=== PATIENT | male | born 1960 | race Caucasian/White ===

== ENCOUNTER 2021-12-07 12:43 | Outpatient (REF) | payer MEDICARE, OTHER, SELFPAY ==
--- NOTE | ~2021-12-07 | CT_ITS ---
EXAMINATION: CT CHEST SCREENING CLINICAL INFORMATION: 40 pack per history. Current smoker. COMPARISON: 02/15/2019 and 02/14/2018 TECHNIQUE: Multidetector volumetric CT imaging of the chest is performed without contrast using low dose technique. Additional 2D coronal and sagittal reformatted images and axial 3D maximum intensity projection (MIP) images are generated on the CT workstation. This CT examination was performed using dose optimization techniques as appropriate, variously including the following: *Automated exposure control *Adjustment of mA and/or kV according to patient size (this includes techniques or standardized protocols for targeted exams where dose is matched to indication/reason for exam; i.e. extremities or head) *Use of iterative reconstruction technique DLP: 56 mGy-cm FINDINGS: LUNGS: Central airways are patent. No confluent parenchymal disease. No ground-glass disease is appreciated. There is some central bronchial wall thickening present without evidence of bronchiectasis. No significant emphysematous change is appreciated. There are a few scattered sub-4 mm densities present. There is a 5 mm noncalcified nodule seen within the right upper lobe centrally on image [address] series #5. This is stable. MEDIASTINUM: Heart normal size. Coronary artery calcification is seen. No pericardial effusion. There is enlarged right precarinal lymph node with short axis of 1.1 cm. There is a 1 cm short axis azygos lymph node. These lymph nodes were present previously and essentially of similar size. No hilar lymphadenopathy is appreciated. No thoracic aortic aneurysm. There is nonocclusive aortic arch calcified plaque. Visualized thyroid gland unremarkable. PLEURA: There is no pleural effusion. No pleural mass or thickening. AXILLA: No lymphadenopathy. UPPER ABDOMEN: Unremarkable OSSEOUS STRUCTURES: No suspicious destructive bony lesions identified. CT/CT lung screening IMPRESSION: Stable 5 mm right upper lobe nodule. Mildly enlarged mediastinal lymph nodes similar to previous studies. ASSESSMENT: Lung-RADS category 2: Benign RECOMMENDATION: Routine annual low-dose CT screening in 12 months.
== END 2021-12-07 12:44 | disposition home or self-care (01) ==
LOC: HO.CT 12:43
PROVIDERS: PCP Internal Medicine Geriatric Medicine; Visit Provider Physician Assistant Medical
DX: F17.210 Nicotine dependence, cigarettes, uncomplicated (principal); I25.10 Atherosclerotic heart disease of native coronary artery without angina pectoris; R59.1 Generalized enlarged lymph nodes
CPT/HCPCS: 71271

== ENCOUNTER 2023-05-02 08:32 | Outpatient (REF) | payer MEDICARE, OTHER, SELFPAY ==
--- NOTE | ~2023-05-02 | CT_ITS ---
EXAMINATION: CT CHEST SCREENING CLINICAL INFORMATION: Nicotine dependence, 40 pack year history, current smoker COMPARISON: Previous studies, most recent, 12/07/2021 TECHNIQUE: Multidetector volumetric CT imaging of the chest is performed without contrast using low dose technique. Additional 2D coronal and sagittal reformatted images and axial 3D maximum intensity projection (MIP) images are generated on the CT workstation. This CT examination was performed using dose optimization techniques as appropriate, variously including the following: *Automated exposure control *Adjustment of mA and/or kV according to patient size (this includes techniques or standardized protocols for targeted exams where dose is matched to indication/reason for exam; i.e. extremities or head) *Use of iterative reconstruction technique DLP: 54 mGy-cm FINDINGS: BUDGET SPECIALIST: Negative LUNGS: Trachea and bronchi are patent. Lungs are hyperinflated with flattening of the hemidiaphragms. Mild centrilobular emphysema. Stable right upper lobe 5 mm nodule 3:23. Scattered micronodules. MEDIASTINUM: Unremarkable thyroid. Mildly enlarged mediastinal lymph nodes are unchanged. No hilar lymphadenopathy. HEART AND GREAT VESSELS: Heart is not enlarged. No pericardial effusion. Nonaneurysmal aorta with atherosclerotic calcifications in the mid to the branch vessels. Nonenlarged pulmonary arteries. CORONARY ARTERY CALCIFICATION: Mild PLEURA: There is no pleural effusion. No pleural mass or thickening. AXILLA: No lymphadenopathy. UPPER ABDOMEN: Unremarkable OSSEOUS AND SOFT TISSUE STRUCTURES: Gynecomastia. Degenerative changes. CT/CT lung screening IMPRESSION: Stable 5 mm right upper lobe nodule. No change mildly enlarged mediastinal lymph nodes. ASSESSMENT: Lung-RADS category 2: Benign RECOMMENDATION: Routine annual low-dose CT screening in 12 months.
== END 2023-05-02 08:33 | disposition home or self-care (01) ==
LOC: HO.CT 08:32
PROVIDERS: PCP Internal Medicine Geriatric Medicine; Visit Provider Physician Assistant Medical
DX: Z12.2 Encounter for screening for malignant neoplasm of respiratory organs (principal); F17.210 Nicotine dependence, cigarettes, uncomplicated
CPT/HCPCS: 71271

== ENCOUNTER 2023-06-27 09:22 | Outpatient (REF) | payer MEDICARE, OTHER, SELFPAY ==
[2023-06-27 11:08] LABS: MANUAL DIFF FLAG NO
[2023-06-27 11:31] LABS: Basophils Absolute Auto 0.1 X10*3/uL (0.0-0.2); Basophils Percent Auto 1.2 % (0-2); Eosinophils Absolute Auto 0.3 X10*3/uL (0.0-0.4); Eosinophils Percent Auto 4.5 % (0-4); Hematocrit 37.6 % (42.0-52.0); Hemoglobin 12.9 g/dl (14.0-18.0); Imm Gran Abs Auto 0.06 X10*3/uL (0.00-0.03); Imm Gran Pct Auto 0.9 % (0.0-0.4); Lymphocytes Absolute Auto 2.3 X10*3/uL (1.2-4.9); Lymphocytes Percent Auto 33.1 % (20-40); Mean Corpuscular HGB Conc 34.3 g/dl (31.0-36.0); Mean Corpuscular Hemoglobin 31.1 pg (27.0-33.0); Mean Corpuscular Volume 90.6 fL (80.0-98.0); Mean Platelet Volume 10.8 fL (9.4-12.4); Monocytes Absolute Auto 0.7 X10*3/uL (0.1-1.2); Monocytes Percent Auto 10.1 % (2-11); Neutrophils Absolute Auto 3.5 x10*3/uL (2.0-8.3); Neutrophils Percent Auto 50.2 % (45-73); Platelet Count 219 X10*3/uL (160-400); Red Blood Count 4.15 X10*6/uL (4.60-5.80)
[2023-06-27 11:48] LABS: Estimated Average Glucose 169 mg/dL; Hemoglobin A1c % 7.5 % (<6.0)
[2023-06-27 11:56] LABS: Alanine Aminotransferase 28 U/L (0-40); Albumin Level 4.3 g/dL (3.5-5.0); Alkaline Phosphatase 82 U/L (39-117); Anion Gap 10 (12-20); Aspartate Amino Transferase 20 U/L (5-37); Bilirubin Total 0.4 mg/dL (0.0-1.0); Blood Urea Nitrogen 12 mg/dL (9-16); Calcium 9.7 mg/dL (8.4-10.2); Carbon Dioxide 28 mmol/L (22-29); Chloride 100 mmol/L (96-108); Cholesterol 173 mg/dL (<200); Estimated Glomerular Filt Rate > 60; Glucose Random 196 mg/dL (60-115); HDL Cholesterol 61 mg/dL (>40); LDL Cholesterol Calculated 95 mg/dL (<100); Potassium 4.1 mmol/L (3.3-5.1); Sodium 134 mmol/L (135-145); Total Protein 7.3 g/dL (6.5-8.0); Triglycerides 89 mg/dL (<150)
[2023-06-27 12:09] LABS: Prostate Specific Antigen 3.02 ng/mL (<0.05-4.0)
[2023-06-27 12:51] LABS: Creatinine Urine 60.68 mg/dL; Microalbum/Creatinine Ratio Ur 16.4 ug/mg cr (<30)
== END 2023-06-27 09:23 | disposition home or self-care (01) ==
LOC: HO.HHCL 09:22
PROVIDERS: Visit Provider Registered Nurse
DX: Z12.5 Encounter for screening for malignant neoplasm of prostate (principal); R39.11 Hesitancy of micturition; E11.69 Type 2 diabetes mellitus with other specified complication; I10 Essential (primary) hypertension; Z79.4 Long term (current) use of insulin
CPT/HCPCS: 36415; 80053; 80061; 82043; 82570; 83036; 84153; 85025

== ENCOUNTER 2023-07-15 10:25 | Outpatient (REF) | payer MEDICARE, OTHER, SELFPAY | END 2023-07-15 10:26 | disposition home or self-care (01) | LOC: HO.HHCL 10:25 | PROVIDERS: Visit Provider Registered Nurse | DX: D64.9 Anemia, unspecified (principal) | CPT/HCPCS: 36415; 82728; 83540 ==

== ENCOUNTER 2023-07-27 | Outpatient (REF) | payer MEDICARE, OTHER, SELFPAY | END 2023-07-27 00:01 | disposition home or self-care (01) | LOC: HO.HHCLNP | PROVIDERS: Visit Provider Internal Medicine Geriatric Medicine | DX: Z12.11 Encounter for screening for malignant neoplasm of colon (principal) | CPT/HCPCS: 82274 ==

== ENCOUNTER 2023-09-21 12:16 | Outpatient (REF) | payer MEDICARE, OTHER, SELFPAY ==
[2023-09-21 14:31] LABS: Folate 14.2 ng/mL (> or = 4.0); Vitamin B12 363 pg/mL (200-900)
== END 2023-09-21 12:17 | disposition home or self-care (01) ==
LOC: HO.HHCL 12:16
PROVIDERS: Visit Provider Registered Nurse
DX: D64.9 Anemia, unspecified (principal)
CPT/HCPCS: 36415; 82607; 82746

== ENCOUNTER 2024-05-03 08:38 | Outpatient (REF) | payer MEDICARE, MEDICAID, SELFPAY ==
--- NOTE | ~2024-05-03 | CT_ITS ---
EXAMINATION: CT LOW-DOSE SCREENING CHEST WITHOUT CONTRAST CLINICAL INFORMATION: Nicotine dependence, cigarettes, uncomplicated; 40 pack years, current smoker. COMPARISON: 05/02/2023, 12/07/2021. TECHNIQUE: Multidetector volumetric CT imaging of the chest is performed on a Siemens SOMATOM Definition scanner without contrast using low dose technique. Additional 2D coronal and sagittal reformatted images and axial 3D maximum intensity projection (MIP) images are generated on the CT workstation. This CT examination was performed using dose optimization techniques as appropriate, variously including the following: *Automated exposure control *Adjustment of mA and/or kV according to patient size (this includes techniques or standardized protocols for targeted exams where dose is matched to indication/reason for exam; i.e. extremities or head) *Use of iterative reconstruction technique TOTAL EXAM DLP: 81.647 mGy-cm. FINDINGS: PULMONARY NODULES: -There are a few scattered tiny 2 mm nodules, unchanged, some of which appear calcified. -5 mm nodule in the medial right upper lobe centrally (series 5, image 177), unchanged. -There are no new or enlarging nodules. LUNGS: -Mild centrilobular emphysema, upper lobe predominant. Hyperaeration. -There are no consolidations or groundglass opacities. Lungs are clear. -Mild thickening of the small airways is noted, without bronchiectasis or endobronchial filling defect. Findings may represent mild bronchitis. -The trachea has a saber-sheath appearance. Main bronchi appear patent. -No pleural effusion or mass. MEDIASTINUM: -Normal thyroid. -There are a few borderline prominent but nonpathologically enlarged mediastinal nodes, unchanged and presumably reactive. -The aorta is normal in caliber and course with mild to moderate calcification. Normal branching pattern. -Main pulmonary artery is normal in size. -Heart size is normal. No pericardial effusion. -There is a type I hiatus hernia GE junction. Mild thickening of the esophagus in its distal one third may indicate the presence of esophagitis. CORONARY ARTERY CALCIFICATION: Moderate LAD and mild RCA calcification. CHEST WALL/AXILLA: Mild to moderate bilateral gynecomastia. No abnormal masses or lymph nodes. UPPER ABDOMEN: -Mild thickening of the left adrenal gland likely represents hyperplasia. Tiny calcified gallstones suspected. Mild pancreatic atrophy. Left renal mid pole calcification measuring 4 mm, possibly nonobstructing calculus versus vascular. OSSEOUS STRUCTURES: -No suspicious lytic or blastic bone lesions. -Mild to moderate degenerative changes of the thoracic spine. CT/CT lung screening IMPRESSION: 1. Stable tiny lung nodules measuring up to 5 mm in the right upper lobe. No new or enlarging nodules. 2. Mild centrilobular emphysema with upper lobe predominance. 3. No active lung disease. 4. Thickening of the distal esophagus with a type I hiatus hernia at the GE junction. 5. Stable borderline enlarged mediastinal lymph nodes, reactive given stability. 6. Mild small airway thickening may indicate chronic bronchitis. 7. Additional ancillary findings as discussed in the body of the report ASSESSMENT: 1. Lung-RADS Category 2: Benign appearance or behavior of nodules. 2. Lung-RADS Category S: None. RECOMMENDATION: Continued routine annual low-dose CT lung screening in 1 year is recommended. An order for CT CHEST LOW DOSE CANCER SCREENING ([id number]) can be placed. Electronically signed by: Crow Mckenna MD 06/01/2024 04:24 PM EDT
== END 2024-05-03 08:39 | disposition home or self-care (01) ==
LOC: HO.CT 08:38
PROVIDERS: PCP Internal Medicine Geriatric Medicine; Visit Provider Physician Assistant Medical
DX: Z12.2 Encounter for screening for malignant neoplasm of respiratory organs (principal); F17.210 Nicotine dependence, cigarettes, uncomplicated
CPT/HCPCS: 71271

== ENCOUNTER → 2024-05-03 08:39 | Outpatient (BNV) | payer MEDICARE, MEDICAID, SELFPAY | PROVIDERS: PCP Internal Medicine Geriatric Medicine; Visit Provider Radiology Diagnostic Radiology | DX: Z12.2 Encounter for screening for malignant neoplasm of respiratory organs (principal); F17.210 Nicotine dependence, cigarettes, uncomplicated | CPT/HCPCS: 71271 ==

== ENCOUNTER 2024-05-16 11:10 | Outpatient (REF) | payer MEDICARE, MEDICAID, SELFPAY ==
[2024-05-16 12:56] LABS: MANUAL DIFF FLAG NO
[2024-05-16 13:14] LABS: Basophils Absolute Auto 0.1 X10*3/uL (0.0-0.2); Basophils Percent Auto 0.9 % (0-2); Eosinophils Absolute Auto 0.2 X10*3/uL (0.0-0.4); Eosinophils Percent Auto 2.4 % (0-4); Hematocrit 36.8 % (42.0-52.0); Hemoglobin 12.3 g/dl (14.0-18.0); Imm Gran Abs Auto 0.09 X10*3/uL (0.00-0.03); Imm Gran Pct Auto 0.9 % (0.0-0.4); Lymphocytes Absolute Auto 2.1 X10*3/uL (1.2-4.9); Lymphocytes Percent Auto 21.3 % (20-40); Mean Corpuscular HGB Conc 33.4 g/dl (31.0-36.0); Mean Corpuscular Hemoglobin 30.2 pg (27.0-33.0); Mean Corpuscular Volume 90.4 fL (80.0-98.0); Mean Platelet Volume 10.3 fL (9.4-12.4); Monocytes Absolute Auto 0.8 X10*3/uL (0.1-1.2); Monocytes Percent Auto 7.8 % (2-11); Neutrophils Absolute Auto 6.6 x10*3/uL (2.0-8.3); Neutrophils Percent Auto 66.7 % (45-73); Platelet Count 306 X10*3/uL (160-400); Red Blood Count 4.07 X10*6/uL (4.60-5.80); Red Cell Distribution Width 12.3 % (11.0-16.0); White Blood Count 9.9 X10*3/uL (4.8-10.8)
[2024-05-16 14:12] LABS: Creatinine Urine 86.44 mg/dL; Microalbum/Creatinine Ratio Ur 6.9 ug/mg cr (<30)
[2024-05-16 14:18] LABS: Alanine Aminotransferase 15 U/L (0-40); Albumin Level 4.1 g/dL (3.5-5.0); Alkaline Phosphatase 120 U/L (39-117); Anion Gap 14 (12-20); Aspartate Amino Transferase 13 U/L (5-37); Bilirubin Total 0.3 mg/dL (0.0-1.0); Blood Urea Nitrogen 14 mg/dL (9-16); Calcium 9.4 mg/dL (8.4-10.2); Carbon Dioxide 23 mmol/L (22-29); Chloride 100 mmol/L (96-108); Cholesterol 139 mg/dL (<200); Estimated Glomerular Filt Rate > 60; Glucose Random 228 mg/dL (60-115); HDL Cholesterol 43 mg/dL (>40); LDL Cholesterol Calculated 76 mg/dL (<100); Potassium 4.2 mmol/L (3.3-5.1); Sodium 133 mmol/L (135-145); Total Protein 7.4 g/dL (6.5-8.0); Triglycerides 103 mg/dL (<150)
== END 2024-05-16 11:11 | disposition home or self-care (01) ==
LOC: HO.HHCL 11:10
PROVIDERS: Visit Provider Internal Medicine Geriatric Medicine
DX: E11.69 Type 2 diabetes mellitus with other specified complication (principal); Z79.4 Long term (current) use of insulin
CPT/HCPCS: 36415; 80053; 80061; 82043; 82570; 85025

== ENCOUNTER 2024-05-30 11:11 | Outpatient (REF) | payer MEDICARE, MEDICAID, SELFPAY | END 2024-05-30 11:12 | disposition home or self-care (01) | LOC: HO.LNP 11:11 | PROVIDERS: Visit Provider Internal Medicine Geriatric Medicine | DX: Z13.89 Encounter for screening for other disorder (principal) ==

== ENCOUNTER 2024-05-30 11:58 | Outpatient (REF) | payer MEDICARE, MEDICAID, SELFPAY ==
--- NOTE | ~2024-05-30 | XR_ITS ---
EXAMINATION: XR KNEE, RIGHT CLINICAL INFORMATION: Right knee pain COMPARISON: None available. TECHNIQUE: Four views of the right knee. FINDINGS: No acute fracture or subluxation. No focal lesion or periosteal new bone. No loose body or joint fluid. There is arterial calcification. Mild narrowing of the medial compartment. XR/XR knee RT 4V IMPRESSION: No acute fracture or subluxation. Mild narrowing of the medial compartment. Electronically signed by: Elian Langston MD 06/03/2024 09:19 PM EDT
[2024-05-30 13:07] LABS: MANUAL DIFF FLAG NO
[2024-05-30 13:31] LABS: Basophils Absolute Auto 0.1 X10*3/uL (0.0-0.2); Basophils Percent Auto 1.2 % (0-2); Eosinophils Absolute Auto 0.3 X10*3/uL (0.0-0.4); Eosinophils Percent Auto 3.2 % (0-4); Hematocrit 34.7 % (42.0-52.0); Hemoglobin 11.8 g/dl (14.0-18.0); Imm Gran Abs Auto 0.09 X10*3/uL (0.00-0.03); Imm Gran Pct Auto 1.1 % (0.0-0.4); Lymphocytes Absolute Auto 1.8 X10*3/uL (1.2-4.9); Lymphocytes Percent Auto 21.2 % (20-40); Mean Corpuscular Volume 88.3 fL (80.0-98.0); Mean Platelet Volume 10.3 fL (9.4-12.4); Monocytes Absolute Auto 0.8 X10*3/uL (0.1-1.2); Monocytes Percent Auto 9.2 % (2-11); Neutrophils Absolute Auto 5.5 x10*3/uL (2.0-8.3); Neutrophils Percent Auto 64.1 % (45-73); Platelet Count 276 X10*3/uL (160-400); Red Blood Count 3.93 X10*6/uL (4.60-5.80); Red Cell Distribution Width 12.2 % (11.0-16.0); White Blood Count 8.6 X10*3/uL (4.8-10.8)
[2024-05-30 14:09] LABS: Ferritin 386 ng/mL (20-250)
[2024-05-30 14:24] LABS: Folate 9.6 ng/mL (> or = 4.0); Vitamin B12 227 pg/mL (200-900)
== END 2024-05-30 11:59 | disposition home or self-care (01) ==
LOC: HO.HHCL 11:58
PROVIDERS: Visit Provider Internal Medicine Geriatric Medicine
DX: M25.561 Pain in right knee (principal); D64.89 Other specified anemias; D53.9 Nutritional anemia, unspecified; G89.29 Other chronic pain
CPT/HCPCS: 36415; 73564; 82607; 82728; 82746; 85025

== ENCOUNTER 2024-06-26 11:29 | Outpatient (AMB) | payer MEDICARE, MEDICAID, SELFPAY ==
[2024-06-26 11:30] VITALS: BMI 30.9
--- NOTE | 2024-06-26 11:30 | MHC.OFFVIS ---
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 States stairs are also difficult due to the pain. Pt states he tries to walk as much as possible. 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 Has a history of hypertension and diabetes. It appears that his diabetes is poorly controlled. Last hemoglobin A1c from nearly a year ago was 7.5. He reports that he quit smoking nearly 2-3 years ago. He smoked at that time a pack per day. He has been a diabetic for over 20 years. Reports that he can walk about a block and he starts to experience right calf pain. He now presents for follow-up. [facility] Medical History ETOH abuse Diabetes mellitus type 2, insulin dependent Seizure disorder Nicotine dependence, cigarettes, uncomplicated Review of Systems Const All systems reviewed & are unremarkable except as noted in HPI and below Reports no additional complaints ENT Reports Normal hearing present Card Denies chest pain, Denies chest pain at rest, Denies chest pain with activity and Denies pedal edema Resp Denies cough GI Denies abdominal pain Musc Denies abnormal gait, Denies muscle cramps and Denies radiating pain into limb Skin/Breast Denies skin ulcer and Denies wounds Neuro Reports Normal hearing present and Denies abnormal gait Psych Reports no additional complaints Physical Exam Vital Signs: BMI result Body Mass Index 30.9 Const General: cooperative, healthy appearing and comfortable Orientation/consciousness: oriented to person, oriented to place and oriented to time HEENT Head: Yes normal to inspection Neck Neck: Yes normal visual inspection Carotids: no bruits Chest Chest palpation & inspection: normal inspection of the chest Resp Effort & Inspection: normal respiratory effort and able to speak in complete sentences Auscultation: clear to auscultation bilaterally, no crackles, no rales, no rhonchi and no wheezes Cardio Other: Bilateral DP signals Rate: regular rate Rhythm: regular rhythm Heart sounds: S1 normal heart sound present and S2 normal heart sound present Bruits: no carotid bruits Peripheral pulses: Peripheral pulses 2+ throughout GI Inspection: Yes normal to inspection Skin Wounds: no wounds Hair: normal Neuro General: oriented to person, oriented to place and oriented to time Cranial nerves: Yes CN's II-XII intact bilaterally and Yes Normal hearing present Cognition (Neuro): normal cognition Motor exam (neuro): 5/5 motor strength present throughout Extrem Other: venous exam: No significant superficial varicosities or spider telangiectasias, minimal edema General: No clubbing, No cyanosis and No edema Psych Appearance: grossly normal Mental Status: mental status grossly normal Speech and movement: Normal speech and movement present Assessment & Plan Assessment & Plan (1) PAD (peripheral artery disease): Code(s): I73.9 - Peripheral vascular disease, unspecified Category: Medical Plan: In short patient has an element of peripheral vascular disease. I have taken the liberty of ordering noninvasive arterial testing. We did discuss risk factor modification in particular diabetes control. Will follow up with us after testing. Thank you for allowing us to assist in his care. If there are any questions or concerns please do not hesitate to contact us. Please note a longitudinal relationship has been created with the patient and we have been following and surveillance this chronic condition. Orders: Orders US arterial duplex LE BI 1 Week I73.9 - Peripheral vascular disease, unspecified Coding Level of Care Code New Pt Level 4 (87402) Complex EM visit Add On G2211 Diagnoses PAD (peripheral artery disease) I73.9
== END 2024-06-26 11:54 | disposition home or self-care (01) ==
PROVIDERS: PCP Internal Medicine Geriatric Medicine; Visit Provider Surgery Vascular Surgery
DX: I73.9 Peripheral vascular disease, unspecified (principal)
CPT/HCPCS: 99203; G2211

== ENCOUNTER → 2024-06-26 11:29 | Outpatient (BNVA) | payer MEDICARE, MEDICAID, SELFPAY | PROVIDERS: PCP Internal Medicine Geriatric Medicine; Visit Provider Surgery Vascular Surgery | DX: E11.51 Type 2 diabetes mellitus with diabetic peripheral angiopathy without gangrene (principal); I10 Essential (primary) hypertension; Z87.891 Personal history of nicotine dependence | CPT/HCPCS: 99202 ==

== ENCOUNTER 2024-07-11 12:34 | Outpatient (REF) | payer MEDICARE, MEDICAID, SELFPAY ==
--- NOTE | ~2024-07-11 | US_ITS ---
EXAMINATION: US NONINVASIVE ASSESSMENT OF THE BILATERAL LOWER EXTREMITY WITH ARTERIAL DUPLEX AND ANKLE BRACHIAL INDICES (ABIS) SCREENING ULTRASOUND OF THE ABDOMINAL AORTA CLINICAL INFORMATION: Peripheral vascular disease COMPARISON: None available. TECHNIQUE: Duplex Doppler techniques with waveform analysis and measurement of velocities in the common femoral, profunda femoris, superficial femoral, popliteal and tibial arteries were performed. In addition, ankle pulse volume recordings, ankle pressure measurements and ankle brachial indices were obtained of the bilateral lower extremity arterial system. The study was performed only at rest. Additionally the abdominal aorta and iliac arteries are interrogated. FINDINGS: NONINVASIVE ASSESSMENT OF THE ARTERIES OF BILATERAL LOWER EXTREMITIES WITH ABIs: RIGHT LEG: Ankle-brachial index: 0.73 Ankle PVR: Abnormal LEFT LEG: Ankle-brachial index: 0.64 Left ankle PVR: Abnormal YVON Reference: 0.9 - 1.4 = normal - no significant arterial disease 0.7 - 0.89 = mild peripheral arterial disease 0.51 - 0.69 = moderate peripheral arterial disease 0.50 = severe peripheral arterial disease RIGHT LOWER EXTREMITY DUPLEX ULTRASOUND: Common femoral artery: 157 cm/s. Diastolic flow reversal: Absent Profunda femoris artery: 34 cm/s. Diastolic flow reversal: Absent Superficial femoral artery (proximal): 79 cm/s. Diastolic flow reversal: Absent Superficial femoral artery (mid): 99 cm/s. Diastolic flow reversal: Absent Superficial femoral artery (distal): 65 cm/s. Diastolic flow reversal: Absent Popliteal artery: 68 cm/s Diastolic flow reversal: Absent Posterior tibial artery: 49 cm/s Diastolic flow reversal: Absent LEFT LOWER EXTREMITY DUPLEX ULTRASOUND: Common femoral artery: 120 cm/s. Diastolic flow reversal: Present Profunda femoris artery: 101 cm/s. Diastolic flow reversal: Present Superficial femoral artery (proximal): 43 cm/s. Diastolic flow reversal: Absent Superficial femoral artery (mid): Occluded Superficial femoral artery (distal): 163 cm/s. Diastolic flow reversal: Absent Popliteal artery: 39 cm/s Diastolic flow reversal: Absent Posterior tibial artery: 22 cm/s Diastolic flow reversal: Absent Aortic ultrasound Proximal: 2.6 cm Mid: 1.8 cm Distal: 2.3 cm PSV: 77 cm/s Right common iliac artery: 141 cm/s Right external iliac artery: 342 cm/s Left common iliac artery: Not visualized. Left external iliac artery: 196 cm/s US/US arterial duplex BI w/ YVON IMPRESSION: 1. Right YVON 0.73 consistent with moderate peripheral arterial disease. 2. Left YVON 0.64 consistent with severe peripheral arterial disease. 3. Occlusion of the mid left superficial femoral artery. 4. Elevated velocities in the bilateral external iliac arteries consistent with hemodynamically significant stenosis. Electronically signed by: Ck Jackman MD 07/12/2024 01:58 PM EDT
== END 2024-07-11 12:35 | disposition home or self-care (01) ==
LOC: HO.US 12:34
PROVIDERS: PCP Internal Medicine Geriatric Medicine; Visit Provider Surgery Vascular Surgery
DX: I73.9 Peripheral vascular disease, unspecified (principal); Z13.6 Encounter for screening for cardiovascular disorders
CPT/HCPCS: 76706; 93922; 93925

== ENCOUNTER 2024-08-02 12:56 | Outpatient (AMB) | payer MEDICARE, MEDICAID, SELFPAY ==
--- NOTE | 2024-08-02 13:01 | A.OFFVIS_ITS ---
Intake Visit Reasons: Follow Up Arterial US Intake Note: Patient presents for follow up arterial US performed on 07/11/24. Patient states his legs feel better. Accompanied by: Self / Same As Patient Allergies atorvastatin [From LIPITOR] Allergy (Unknown, Verified 08/02/24 13:03) PER H&P HPI HPI Follow Up Arterial US: Details: Very pleasant 64-year-old gentleman presents for follow-up regarding claudication. He has a history of hypertension and diabetes. Last hemoglobin A1c from nearly a year ago was 7.5. Reports he quit smoking about 2 years ago and quit drinking about 10 years ago. He is a retired honing machine operator semiautomatic. At the current time he reports that he can walk about 2-3 blocks. He has been ambulating and working on that and reports that he is doing better with that. He is being maintained on aspirin and statin. He now presents for follow-up with noninvasive testing. [facility] Medical History ETOH abuse Diabetes mellitus type 2, insulin dependent Seizure disorder Nicotine dependence, cigarettes, uncomplicated Review of Systems Const All systems reviewed & are unremarkable except as noted in HPI and below Reports no additional complaints ENT Reports Normal hearing present Card Denies chest pain, Denies chest pain at rest, Denies chest pain with activity and Denies pedal edema Resp Denies cough GI Denies abdominal pain Musc Denies abnormal gait, Denies muscle cramps and Denies radiating pain into limb Skin/Breast Denies skin ulcer and Denies wounds Neuro Reports Normal hearing present and Denies abnormal gait Psych Reports no additional complaints Physical Exam Const General: cooperative, healthy appearing and comfortable Orientation/consciousness: oriented to person, oriented to place and oriented to time HEENT Head: Yes normal to inspection Neck Neck: Yes normal visual inspection Carotids: no bruits Chest Chest palpation & inspection: normal inspection of the chest Resp Effort & Inspection: normal respiratory effort and able to speak in complete sentences Auscultation: clear to auscultation bilaterally, no crackles, no rales, no rhonchi and no wheezes Cardio Other: Bilateral DP signals Rate: regular rate Rhythm: regular rhythm Heart sounds: S1 normal heart sound present and S2 normal heart sound present Bruits: no carotid bruits GI Inspection: Yes normal to inspection Skin Wounds: no wounds Hair: normal Neuro General: oriented to person, oriented to place and oriented to time Cranial nerves: Yes CN's II-XII intact bilaterally and Yes Normal hearing present Cognition (Neuro): normal cognition Motor exam (neuro): 5/5 motor strength present throughout Extrem Other: venous exam: No significant superficial varicosities or spider telangiectasias, minimal edema General: No clubbing, No cyanosis and No edema Psych Appearance: grossly normal Mental Status: mental status grossly normal Speech and movement: Normal speech and movement present Results Reviewed Results Reviewed: Noninvasive arterial testing dated 08/02/2024 demonstrates YVON on the right of 0.73 and on the left of 0.64. There is concern of SFA occlusion on the left side. Written report and images were reviewed. Assessment & Plan Assessment & Plan (1) PAD (peripheral artery disease): Code(s): I73.9 - Peripheral vascular disease, unspecified Category: Medical Plan: In short patient has stable claudication. I did review the pathophysiology of peripheral vascular disease with the patient. In addition we did discuss routine conservative measures including a healthy diet and the importance of exercise and ambulation. We did discuss risk factor modification. The patient will continue to to follow-up with surveillance follow-up in approximately 6 months. Thank you for allowing us to participate in this patient's care. If there are any questions or concerns please do not hesitate to contact us. Please note a longitudinal relationship has been created with the patient and we have been following and surveillance this chronic condition. Orders: Orders US arterial duplex LE BI 6 Months I73.9 - Peripheral vascular disease, uns pecified Coding Level of Care Code Est Pt Level 4 (61108) Complex EM visit Add On G2211 Diagnoses PAD (peripheral artery disease) I73.9
== END 2024-08-02 13:21 | disposition home or self-care (01) ==
PROVIDERS: PCP Internal Medicine Geriatric Medicine; Visit Provider Surgery Vascular Surgery
DX: I73.9 Peripheral vascular disease, unspecified (principal)
CPT/HCPCS: 99214; G2211

== ENCOUNTER → 2024-08-02 12:56 | Outpatient (BNVA) | payer MEDICARE, MEDICAID, SELFPAY | PROVIDERS: PCP Internal Medicine Geriatric Medicine; Visit Provider Surgery Vascular Surgery | DX: I73.9 Peripheral vascular disease, unspecified (principal); I10 Essential (primary) hypertension; E11.9 Type 2 diabetes mellitus without complications | CPT/HCPCS: 99212 ==

== ENCOUNTER 2024-08-15 11:31 | Outpatient (REF) | payer MEDICARE, MEDICAID, SELFPAY ==
--- NOTE | ~2024-08-15 | XR_ITS ---
EXAMINATION: XR LUMBOSACRAL SPINE WITH OBLIQUES CLINICAL INFORMATION: Pain COMPARISON: None available. TECHNIQUE: AP, both oblique, and lateral views of the lumbar spine. Lateral view of the lumbosacral junction. FINDINGS: Vertebral bodies are well aligned and intervertebral disks are preserved. There is no evidence of spondylolysis or listhesis. There is mild narrowing cough L1-L2 with marginal spurring. There is no neuroforaminal encroachment. Sacroiliac joints unremarkable. XR/XR lumbar spine 4V min IMPRESSION: Mild degenerative changes of lumbar spine at the level of L1-2 Electronically signed by: Joes Dupont MD 08/15/2024 05:02 PM TAD
== END 2024-08-15 11:32 | disposition home or self-care (01) ==
LOC: HO.HHCX 11:31
PROVIDERS: Visit Provider Internal Medicine Geriatric Medicine
DX: M54.50 Low back pain, unspecified (principal); G89.29 Other chronic pain
CPT/HCPCS: 72110

== ENCOUNTER 2025-01-14 10:12 | Outpatient (REF) | payer MEDICARE, MEDICAID, SELFPAY ==
[2025-01-14 11:40] LABS: Anion Gap 14 (12-20); Blood Urea Nitrogen 12 mg/dL (9-16); Calcium 9.6 mg/dL (8.4-10.2); Carbon Dioxide 26 mmol/L (22-29); Chloride 98 mmol/L (96-108); Estimated Glomerular Filt Rate > 60; Glucose Random 318 mg/dL (60-115); Potassium 4.5 mmol/L (3.3-5.1); Sodium 133 mmol/L (135-145)
--- OUTSIDE RECORDS SUMMARY | 2025-01-14 11:57 | XMS_ITS | Encounter Summary ---
Author Organization [employer] Address [address] [place] [address] Care Team Providers Care Oven Drier Tender Name Role Phone Name, Isaac ALEMAN Primary Care Provider [phone] Maura Nieto PharmD Unavailable [phone] Reason for Visit * Reason Comments Med Refill Encounter Details Date Type Department Care Team ([facility] st Contact Info) Description 12/15/2024 Refill [facility] [address], [place] [id number] Name, MD Isaac [address] [place] [address] Type 2 diabetes mellitus with other specified complication, with long-term current use of insulin ([facility]) Social History Tobacco Use Types Packs/Day Years Used Date Smoking Tobacco: Former Cigarettes Smokeless Tobacco: Never Alcohol Use Standard Drinks/Week Comments Never 0 (1 standard drink = 0.6 oz pur e alcohol) Alcohol Answer Date Recorded Frequency of Alcohol Consumption Not on file 08/15/2024 Average Number of Drinks Not on file 024 Frequency of Binge Drinking Not on file 03/2024 Score 0 08/15/2024 Depression Answer Date Recorded Patient Health Questionnaire-9 Score 5 05/30/2024 Patient Health Questionnaire-9 Score 5 05/30/2024 Last PHQ-9: Questionnaire Data Not on file 0 05/30/2024 Housing Stability Answer Date Recorded What is your housing situation today? I have elicia bedolla 08/15/[address] you li ve. Do you have problems with any of the following? None of the above 08/15/2024 Food Insecurity Answer Date Recorded Within the past 12 months, y ou worried that your food would run out before you got money to buy more: Never True 08/15/2024 Within the past 12 months,th e food you bought just didn't last and you didn't have enough money to get more: Never True 03/2024 Transportation Answer Date Recorded In the past 12 months, has l ack of transportation kept you from medical appts, meetings, work or from getting things needed for daily living? No 08/15/2024 Utilities Answer Date Recorded In the past 12 months, has t he electric, gas, oil or water company threatened to shut off services in your home? No 08/15/2024 Depression Answer Date Recorded Patient Health Questionnaire-2 Score 2 05/30/2024 Internet Access Answer Date Recorded Internet Access Q1 No 08/15/2024 Internet Access Q2 I cannot afford it 08/15/2024 Sex and Gender Information Value Date Recorded Sex Assigned at Male 08/09/2022 10:18 AM EDT Legal Sex Male 10:18 AM EDT Gender Identity Male 08/09/2022 10:18 AM EDT Sexual Orientation Straight 08/09/2022 10 :18 AM EDT documented as of this encounter Plan of Treatment Upcoming Encounters Date Type Department Care Team (Late st Contact Info) Description 01/22/2025 11:30 AM EDT Medication Management [facility] [address] [place] [address] Maura Nieto PharmD [address] [place] [address] documented as of this encounter Visit Diagnoses Diagnosis Type 2 diabetes mellitus with other specified complication, with long-term current use of insulin ([facility]) documented in this encounter Additional Health Concerns Assessment Noted Time PHQ-9 Depression Total Score: 5 05/30/20 24 10:46 AM EDT documented as of this encounter Care Teams Oven Drier Tender Relationship Specialty Start Date End Date Name, MD Isaac [address] [place] [address] [id number] PCP - General Family Medicine 10/20/15 Maura Nieto PharmD [address] [place] [address] [phone] Pharmacist Internal Medicine 12/24/24 documented as of this encounter
--- OUTSIDE RECORDS SUMMARY | 2025-01-14 11:57 | XMS_ITS | Encounter Summary ---
Author Organization [email or web address] Address [address] [facility] [address] [place] [address] Care Team Providers Care Solid Waste Collection Worker Name Role Phone Name, Isaac ALEMAN Primary Care Provider [phone] Maura Nieto PharmD Unavailable Encounter Details Date Type Department Care Team (Late Contact Info) Description 02/18/2023 Abstract [facility] [address] [place] [address] [phone] Name, MD Isaac [address] [place] [phone] Social History Tobacco Use Types Packs/Day Years Used Date Smoking Tobacco: Every Day Cigarettes Smokeless Tobacco: Never PHQ-2 Answer Date Recorded Patient Health Questionnaire-2 Score 0 11/23/2022 Depression Answer Date Recorded Patient Health Questionnaire-2 Score 0 11/23/2022 Sex and Gender Information Value Date Recorded Sex Assigned at Male 08/09/2022 10:18 AM EDT Legal Sex Male 10:18 AM EDT Gender Identity Male 08/09/2022 10:18 AM EDT Sexual Orientation Straight 08/09/2022 10 :18 AM EDT documented as of this encounter Plan of Treatment Upcoming Encounters Date Type Department Care Team (Late st Contact Info) Description 01/22/2025 11:30 AM EDT Medication Management [facility] [address] [place] [address] [phone] PuiaMaura, PharmD [address] [place] [phone] documented as of this encounter Procedures Procedure Name Priority Date/Time Associated Diagnosis Comments POCT FECAL IMMUNOCHEMICAL Routine 02/09/2022 12:20 PM EDT documented in this encounter Results * POCT Fecal Immunochemical Test (02/09/2022 12:20 PM EDT) Fecal Immunochemical Test Nonreactive Stool Rectal contents / Unknown 02/09/2022 12:20 PM EDT Historical Provider POINT OF CARE TEST ENTER/ EDIT ORDERABLES Final Result documented in this encounter Visit Diagnoses Not on filedocumented in this encounter Care Teams Solid Waste Collection Worker Relationship Specialty Start Date End Date Name, MD Isaac [address] [place] [address] PCP - General Family Medicine 10/20/15 Maura Nieto PharmD [address] [place] [address] Pharmacist Internal Medicine 12/24/24 documented as of this encounter
--- OUTSIDE RECORDS SUMMARY | 2025-01-14 11:57 | XMS_ITS | Encounter Summary ---
Author Organization [employer] Address [address] [facility] [address] [place] [address] Care Team Providers Care Chain Puller Name Role Phone Name, Isaac ALEMAN Primary Care Provider [phone] Maura Nieto PharmD Unavailable [phone] Reason for Visit * Reason Comments Med Refill Encounter Details Date Type Department Care Team ([facility] st Contact Info) Description 08/30/2023 Refill [facility] [address] [place], [place] [phone] Name, MD Isaac [address] [place] [address] Type 2 diabetes mellitus with other specified complication, with long-term current use of insulin ([facility]) Social History Tobacco Use Types Packs/Day Years Used Date Smoking Tobacco: Former Cigarettes Smokeless Tobacco: Never Alcohol Use Standard Drinks/Week Comments Never 0 (1 standard drink = 0.6 oz pur e alcohol) PHQ-2 Answer Date Recorded Patient Health Questionnaire-2 Score 0 11/23/2022 Housing Stability Answer Date Recorded What is your housing situation today? I have elicia bedolla 08/04/[address] you li ve. Do you have problems with any of the following? None of the above 08/04/2023 Food Insecurity Answer Date Recorded Within the past 12 months, y ou worried that your food would run out before you got money to buy more: Never True 08/04/2023 Within the past 12 months,th e food you bought just didn't last and you didn't have enough money to get more: Never True Transportation Answer Date Recorded In the past 12 months, has l ack of transportation kept you from medical appts, meetings, work or from getting things needed for daily living? No 08/04/2023 Utilities Answer Date Recorded In the past 12 months, has t he electric, gas, oil or water company threatened to shut off services in your home? No 08/04/2023 Depression Answer Date Recorded Patient Health Questionnaire-2 [...] Description 01/22/2025 11:30 AM EDT Medication Management [facility] [address] [place] [phone] Maura Nieto PharmD [address] [place] [address] documented as of this encounter Visit Diagnoses Diagnosis Type 2 diabetes mellitus with other specified complication, with long-term current use of insulin ([facility]) documented in this encounter Care Teams Chain Puller Relationship Specialty Start Date End Date Name, MD Isaac [address] [place] [address] [phone] PCP - General Family Medicine 10/20/15 Maura Nieto PharmD [address] [place] [phone] Pharmacist Internal Medicine 12/24/24 documented as of this encounter
--- OUTSIDE RECORDS SUMMARY | 2025-01-14 11:57 | XMS_ITS | Clinical Summary ---
Author Organization [employer] Address [address] [facility] [address] [place] [address] Care Team Providers Care Decorator Mannequin Name Role Phone Name, Isaac ALEMAN Primary Care Provider [phone] Maura Nieto PharmD Unavailable [phone] Allergies Active Allergy Reactions Criticality Noted Date Comments Atorvastatin 12/04/2015 Other reaction(s): Unknown Medications Continuous Glucose Pack Worker (FreeStyle Rick 2 Byars) deviceIndicatio ns:Type 2 diabetes mellitus with other specified complication, with long-term current use of insulin ([facility]) USE PRESCRIBED 1 each Active Continuous Glucose Sensor (FreeStyle Rick 2 Sensor) miscIndications :Type 2 diabetes mellitus with other specified complication, with long-term current use of insulin (CMS/[facility]) USE EVERY 2 WEEKS PRESCRIBED 2 each Active pravastatin (Pravachol) 20 MG tabletIndicatio ns:Type 2 diabetes mellitus with other specified complication, with long-term current use of insulin (CMS/[facility]) TAKE 1 TABLET BY MOUTH DAILY ON TUESDAY, TUESDAY, AND TUESDAY 36 tablet 3 Active HumaLOG 100 UNIT/ML solutionIndicat ions:Type 2 diabetes mellitus with other specified complication, with long-term current use of insulin (CMS/[facility]) Inject 8-10 Units under the skin See administration instructions. 8-10 units QID prior to meal and snacks 10 mL 11 Active omeprazole (PriLOSEC) [address] capsule Take 1 capsule (20 mg) by mouth before breakfast. Do not crush or chew. 30 capsule 11 024 2024 Active amLODIPine (Norvasc) 5 MG tabletIndicatio ns:Type 2 diabetes mellitus with other specified complication, with long-term current use of insulin (CMS/HCC) TAKE 1 TABLET BY MOUTH DAILY 90 tablet 1 024 Active insulin syringe-needle U-100 (TRUEplus Insulin Syringe) 31G X 5/16 0.5 mL misc USE DIRECTED 5 TIMES A DAY 150 each 11 024 Active aspirin 81 MG chewable tablet Chew 1 tablet (81 mg) Once per day. 90 tablet 3 025 2025 Active glucose blood (FreeStyle Precision Kimo Test) test stripIndication s:Type 2 diabetes mellitus with other specified complication, with long-term current use of insulin (CMS/HCC) 1 each by Other route 3 times daily. 100 each Active insulin glargine (Lantus) 100 UNIT/ML injection Inject 45 Units under the skin in the morning. Active metFORMIN XR (Glucophage-XR) 500 MG 24 hr tablet Take 1 tablet (500 mg) by mouth with evening meal. Do not crush, chew, or split. 30 tablet 025 2025 Active losartan-hydroC HLOROthiazide (Hyzaar) 100-12.5 MG tabletIndicatio ns:Essential hypertension Take 1 tablet by mouth Once per day. 30 tablet 11 025 2025 Active meloxicam (Mobic) 7.5 MG tablet TAKE 1 TABLET BY MOUTH EVERY DAY FOR 20 DAYS 30 tablet 025 Active buPROPion SR (Wellbutrin SR) 150 MG 12 hr tabletIndicatio ns:Type 2 diabetes mellitus with other specified complication, with long-term current use of insulin (CMS/HCC),Essen tial hypertension,Ho using instability,Scr eening for prostate cancer Take 1 tablet (150 mg) by mouth 2 times daily. 60 tablet 023 2024 Discontinued(M ed list cleanup (will not trigger notification to Pharmacy)) metFORMIN (Glucophage) 1000 MG tabletIndicatio ns:Type 2 diabetes mellitus with other specified complication, with long-term current use of insulin (CMS/HCC) take 1/2 tablet by oral route 2 times every day with morning and evening meals 60 tablet 1 023 2024 Discontinued(M ed list cleanup (will not trigger notification to Pharmacy)) Contour Next Test test strip TEST BLOOD SUGAR 3 TIMES A DAY 100 strip 11 024 2024 Discontinued(T herapy completed) aspirin 81 MG chewable tablet Chew 1 tablet (81 mg) Once per day. 30 tablet 11 024 2024 Discontinued(R eorder (will not trigger notification to Pharmacy)) glucose blood (FreeStyle Precision Kimo Test) test strip 100 each by Other route 3 times daily. 2024 Discontinued(D uplicate order (will not trigger notification to Pharmacy)) glucose blood (FreeStyle Precision Kimo Test) test stripIndication s:Type 2 diabetes mellitus with other specified complication, with long-term current use of insulin ([facility]) 1 each by Other route 3 times daily. 100 each 11 024 2024 Discontinued(R eorder (will not trigger notification to Pharmacy)) TRUEplus Insulin Syringe 31G X 5/16 0.5 ML misc USE DIRECTED 4 TIMES A DAY 100 each 11 024 2024 Discontinued(D uplicate order (will not trigger notification to Pharmacy)) meloxicam (Mobic) 7.5 MG tablet TAKE 1 TABLET BY MOUTH EVERY DAY FOR 20 DAYS 20 tablet 1 024 2024 Discontinued(R eorder (will not trigger notification to Pharmacy)) losartan (Cozaar) 100 MG tabletIndicatio ns:Type 2 diabetes mellitus with other specified complication, with long-term current use of insulin ([facility]) TAKE 1 TABLET BY MOUTH DAILY 90 tablet 1 024 2024 Discontinued(I neffective) insulin glargine (Lantus) 100 UNIT/ML injection 45 UNIT SUBCUTANEOUS INJECTION AT BEDTIME 10 mL 11 025 2024 Discontinued(R eorder (will not trigger notification to Pharmacy)) Blood Glucose Monitoring Suppl (True Metrix Meter) w/Device kit USE DIRECTED 1 kit 025 2024 Discontinued(M ed list cleanup (will not trigger notification to Pharmacy)) empagliflozin (Jardiance) 10 MGIndications:T ype 2 diabetes mellitus with other specified complication, with long-term current use of insulin (CMS/HCC) Take 1 tablet (10 mg) by mouth Once per day. 30 tablet 11 025 2024 Discontinued(E ntered in error) Active Problems Problem Noted Date Diagnosed Date Hiatal hernia 08/15/2024 Gallstones 08/15/2024 Depressive disorder 11/23/2022 Anxiety 11/23/2022 Essential hypertension 06/24/2016 Diabetic retinopathy associa clair with type 2 diabetes mellitus 06/24/2016 Tobacco dependence syndrome 12/04/2015 Type 2 diabetes mellitus with other specified co mplication 12/04/2015 Encounters Date Type Department Care Team Description 12/28/2024 10:00 AM EDT Office Visit [facility] [address] [place] [address] Isaac Baptiste MD Type 2 diabetes mellitus with other specified complication, with long-term current use of insulin (CMS/[facility]) (Primary Dx); Essential hypertension 12/28/2024 Travel 12/27/[address] [facility] [address] [place] [address] Amber Unger MA chart prep 12/24/2024 Travel 12/21/2024 Population Health Risk Score [facility] ([facility]) Department [address] [phone] Provider, Population Health Generic 12/15/[address] [facility] [address] [place] [address] Isaac Baptiste MD Type 2 diabetes mellitus with other specified complication, with long-term current use of insulin (CMS/HCC) 12/07/[address] [facility] [address] [place] [address] Isaac Baptiste MD 11/27/[address] [facility] [address] [place] [address] Porsha Veras RN 11/23/2024 11:00 AM EST Clinical Support [facility] [address] [place] [address] Porsha Veras RN Type 2 diabetes mellitus with other specified complication, with long-term current use of insulin ([facility]) [E11.69, Z79.4] 11/17/[address] [address] Isaac Baptiste MD 11/13/[address] [address] Name, MD Isaac Medication Question; GLUCOMETER SUPPLIES 10/19/2024 10:00 AM EST Clinical Support [address] [phone] Porsha Veras RN Type 2 diabetes mellitus with other specified complication, with long-term current use of insulin ([facility]) [E11.69, Z79.4] 10/19/2024 Travel 10/18/[address] [phone] Amber Unger MA feb recalls from Last 3 Months Immunizations Name Administration Dates Next Due Influenza injectable quadriv alent IIV4 with preservative 07/04/2018,07/26/2017,06/24/2016 Influenza injectable quadriv alent preservative free 07/01/2023,07/16/2022,07/24/2021,07/01,07/09/2019 Influenza, IIV3, injectable 08/25/2015,1 ,07/12/2013,06/16,07/15/2011,07/16/2010,06/23/2009 ,08/19/2008,07/27/2007,09/24/2006 Influenza, seasonal, injecta ble, preservative free 06/20/2024 Pfizer Covid-19 Vaccine 12+ 07/25/2024, Pfizer Covid-19 Vaccine 12+ Bivalent 07/16/2022 Pneumococcal Conjugate PCV 20 02/17/2024 Pneumococcal Polysaccharide PPSV23 03/16/2006 TD (adult), 2 Lf tetanus tox oid, preservative free, adsorbed 12/10/2021 Tdap 01/22/2011,10/24/2010 Social History Tobacco Use Types Packs/Day Years Used Date Smoking Tobacco: Former Cigarettes Smokeless Tobacco: Never Tobacco Cessation:Counseling Given: Not Answered Alcohol Use Standard Drinks/Week Comments Never 0 [...] your housing situation today? I have elicia chioma 08/15/[address] you li [...] Orientation Straight 08/09/2022 10 :18 AM EDT Last Filed Vital Signs Vital Sign Reading Time Taken Comments Blood Pressure 157/86 12/28/2024 10:16 AM EDT Pulse 74 12/28/2024 10:16 AM EDT Temperature 36.5 ??C (97.7 ??F) 11/23/2024 11:[address] Respiratory Rate 18 12/28/2024 10:16 AM EDT Oxygen Saturation 97% 12/28/2024 10:16 AM EDT Inhaled Oxygen Concentration - - Weight 93.5 kg (206 lb 3.2 oz) 12/28/2024 10:16 AM EDT Height 167.6 cm (5' 6 ) 12/28/2024 10:16 AM EDT Body Mass Index 33.28 12/28/2024 10:16 AM EDT Plan of Treatment Upcoming Encounters Date Type Department Care Team (Late st Contact Info) Description 01/22/2025 11:30 AM EDT Medication Management [facility] [address] [place], [place] [phone] Maura Nieto, PharmD [address] [place], [place] [phone] Health Maintenance Due Date Last Done Comments CT Colonography 1960 Colonoscopy 1960 HIV Screening 1960 Sigmoidoscopy 1960 Hepatitis C Screening 01/17/1978 Zoster Vaccines (1 of 2) 01/17/2010 RSV Patients and Patients Aged 60 years or older (1 - Risk 60-74 years 1-dose series) 2020 FIT 07/27/2024 07/27/2023, 02/09/2022 FOBT 07/27/2024 07/27/2023 Diabetes: Hemoglobin A1C 03/26/2025 025, 08/15/2024, 05/30/2024, Additional history exists Eye Exam 05/07/2025 05/07/2024, 04/10, 05/07/2024, Additional history exists Diabetes: Urine Protein Screening 05/16/2025 05/16/2024, 06/27/2023, 05/20/2022, Additional history exists Lipid Panel 05/16/2025 05/16/2024, 06/10, 05/20/2022, Additional history exists Depression Screening 05/30/2025 05/30/2024, 05/30/20 24 Alcohol/Substance Use Screening 08/15/2025 08/15/2024 Diabetes: Foot Exam 08/15/2025 08/15/2024, 08/15/2024, 08/15/2024, Additional history exists SDOH Screening 08/15/2025 08/15/2024 Tobacco Screening 12/28/2025 12/28/2024 Colorectal Cancer Screening 08/27/2027 FIT DNA/Cologuard 08/27/2027 08/27/2024 DTaP/Tdap/Td Vaccines (4 - Td or Tdap) 12/11/2031 12/10/2021, 01/22/2011, 10/24/2010 Pneumococcal Vaccine: 50+ Years Completed 02/17/2024, 03/16/2006 Influenza Vaccine Completed 06/20/2024, , 07/16/2022, Additional history exists COVID-19 Vaccine Completed 07/25/2024, , 07/16/2022, Additional history exists HIB Vaccines Aged Out No longer eligi ble based on patient's age to complete this topic HPV Vaccines Aged Out No longer eligi ble based on patient's age to complete this topic Hepatitis A Vaccines Aged Out No long er eligible based on patient's age to complete this topic Hepatitis B Vaccines Aged Out No long er eligible based on patient's age to complete this topic IPV Vaccines Aged Out No longer eligi ble based on patient's age to complete this topic Meningococcal Vaccine Aged Out No vivek malik eligible based on patient's age to complete this topic RSV under 20 months Aged Out No longe r eligible based on patient's age to complete this topic Rotavirus Vaccines Aged Out No longer eligible based on patient's age to complete this topic Procedures Procedure Name Priority Date/Time Associated Diagnosis Comments BASIC METABOLIC PANEL Routine 01/14/2025 10:15 AM EDT Essential hypertension POCT GLUCOSE Routine 12/28/2024 10:17 AM EDT Type 2 diabetes mellitus with other specified complication, with long-term current use of insulin (CMS/HCC) POCT GLYCATED HEMOGLOBIN, TOTAL Routine 12/24/2024 1:06 PM EDT Type 2 diabetes mellitus with other specified complication, with long-term current use of insulin (CMS/HCC) LAB COLOGUARD?? COLON CANCER SCREEN Routine 08/27/2024 6:30 PM EST Screening for colon cancer ALBUMIN, RANDOM URINE W/CREATININE Routine 05/16/2024 11:15 AM EDT Type 2 diabetes mellitus with other specified complication, with long-term current use of insulin (CMS/HCC) LIPID PANEL, STANDARD Routine 05/16/2024 11:15 AM EDT Type 2 diabetes mellitus with other specified complication, with long-term current use of insulin ([facility]) FECAL GLOBIN BY IMMUNOCHEMISTRY Routine 07/27/2023 12:00 AM EDT from Last 3 Months or Most Recently Relevant to Health Maintenance Results * (ABNORMAL) Basic Metabolic Panel (01/14/2025 10:15 AM EDT) Sodium 133(L) 135 - 145 mmol/L [facility] Potassium 4.5 3.3 - 5.1 mmol/L [facility] Chloride 98 96 - 108 mmol/L [facility] Carbon Dioxide 26 22 - 29 mmol/L [facility] Anion Gap 14 12 - 20 [facility] Urea Nitrogen (BUN) 12 9 - 16 mg/dL [facility] Creatinine, Serum 0.89 0.5 - 1.4 mg/dL [facility] Estimated Glomerular Filt Rate >60 [facility] Comment:Chronic Kidney Disea se: Estimated GFR < 60 mL/min/1.56k8Frgwxn Kidney Disease: Estimated GFR < 15 mL/min/1.73m2 Glucose 318(H) 60 - 115 mg/dL [facility] Calcium 9.6 8.4 - 10.2 mg/dL [facility] Blood Venous blood specimen / Unknown 01/14/2025 10:15 AM EDT 01/14/2025 11:14 AM EDT us Isaac Baptiste MD LAB BLOOD ORDERABLES Final Resul t [facility] [address] [place] [address] [phone] * (ABNORMAL) POCT Glucose (12/28/2024 10:17 AM EDT) Pathologist [facility] Glucose Blood, POC 248(A) 60 - 200 mg/dL QC Media Lot # [id number] Lot# Expiration Date 82 Blood Capillary blood specimen / Unknown 12/28/2024 10:17 AM EDT Isaac Baptiste MD POINT OF CARE TEST ENTER/EDIT OR DERABLES Final Result * (ABNORMAL) POCT HGB A1C (12/24/2024 1:06 PM EDT) Pathologist [facility] Hemoglobin A1C 8.2(A) 4.0 - 6.0 % QC Media Lot # [id number] Blood 12/24/2024 1:06 PM EDT us Isaac Baptiste MD POINT OF CARE TEST ENTER/EDIT OR DERABLES Final Result * Cologuard?? colon cancer screening (08/27/2024 6:30 PM EST) Pathologist [facility] Cologuard Result Negative Negative 09/06/20 24 2:03 AM EST [facility] (CLIA #:[id number]) Comment: NEGATIVE TEST RESULT. A negative Cologuard result indicates a low likelihood that a colorectal cancer (CRC) or advanced adenoma (adenomatous polyps with more advanced pre-malignant features) ??is present. The chance that a person with a negative Cologuard test has a colorectal cancer is less than 1 in 1500 (negative predictive value >99.9%) or has an ??advanced adenoma is less than ??5.3% (negative predictive value 94.7%). These data are based on a prospective cross-sectional study of 10,000 individuals at average risk for colorectal cancer who were screened with both Cologuard and colonoscopy. (Claire Kwan al, N Engl J Med 2014;370(14):1286- 1297) The normal value (reference range) for this assay is negative. COLOGUARD RE-SCREENING RECOMMENDATION: Periodic colorectal cancer screening is an important part of preventive healthcare for asymptomatic individuals at average risk for colorectal cancer. ??Following a negative Cologuard result, the [place] [employer] and U.S. Multi-Society Task Force screening guidelines recommend a Cologuard re-screening interval of 3 years. References: [place] [employer] Guideline for Colorectal Cancer Screening: https://www.cancer.org/cancer/znswm-ytkago-tjgiyl/ffccgrsln-dczbdbynf-nnhbwns/ac s-rec ommendations.html.; Roderick DK, Amado CR, Sharron VillagranK, Colorectal Cancer Screening: Recommendations for Physicians and Patients from the U.S. Multi-Society Task Force on Colorectal Cancer Screening , Am J Gastroenterology 2017; 112:7700-6547. TEST DESCRIPTION: Composite algorithmic analysis of stool DNA-biomarkers with hemoglobin immunoassay. ?? Quantitative values of individual biomarkers are not reportable and are not associated with individual biomarker result reference ranges. Cologuard is intended for colorectal cancer screening of adults of either sex, 45 years or older, who are at average-risk for colorectal cancer (CRC). Cologuard has been approved for use by the U.S. FDA. The performance of Cologuard was established in a cross sectional study of average-risk adults aged 50-84. Cologuard performance in patients ages 45 to 49 years was estimated by sub-group analysis of near-age groups. Colonoscopies performed for a positive result may find as the most clinically significant lesion: colorectal cancer [4.0%], advanced adenoma (including sessile serrated polyps greater than or equal to 1cm diameter) [20%] or non- advanced adenoma [31%]; or no colorectal neoplasia [45%]. These estimates are derived from a prospective cross-sectional screening study of 10,000 individuals at average risk for colorectal cancer who were screened with both Cologuard and colonoscopy. (Claire Kwan al, N Engl J Med 2014;370(14):1824-6029.) Cologuard may produce a false negative or false positive result (no colorectal cancer or precancerous polyp present at colonoscopy follow up). A negative Cologuard test result does not guarantee the absence of CRC or advanced adenoma (pre-cancer). The current Cologuard screening interval is every 3 years. ([place] [employer] and U.S. Multi-Society Task Force). Cologuard performance data in a 10,000 patient pivotal study using colonoscopy as the reference method can be accessed at the following location: www.[employer].com/results. Additional description of the Cologuard test process, warnings and precautions can be found at www.cologuard.com. Stool specimen (specimen) 08/27/2024 6:30 PM EST 08/29/2024 11:32 AM EST us Isaac Baptiste MD LAB MOLECULAR DIAGNOSTICS ORDERA BLES Final Result Performing Organization Address [facility] Co de Phone Number [facility] (CLIA #:[id number]) [place] [address], * Albumin, Random Urine W/Creatinine (05/16/2024 11:15 AM EDT) Creatinine, Urine 86.44 mg/dL [facility] Microalbumin Urine 6.0 mg/L [facility] Microalbum Creatinine Ratio Ur 6.9 <30 ug/mg cr [facility] Comment:Albumin/Creatinine R atio Reference Ranges: Normal: < 30 ug/mg creatinine Microalbuminuria: 30 - 300 ug/mg creatinineClinical Albuminuria: > 300 ug/mg creatinine Urine (Urine, Random) 05/16/2024 11:15 AM EDT 05/16/2024 12:54 PM EDT us Isaac WATTS URINE ORDERABLES Final Resul t Performing Organization Address [facility] Co de Phone Number [facility] [address] [place] [phone] * Lipid Panel, Standard (05/16/2024 11:15 AM EDT) Triglycerides 103 <150 mg/dL [facility] Comment:Desirable Triglyceri de: less than 150 mg/dLBorderline High Triglyceride 150-199 mg/dLHigh Triglyceride: 200-499 mg/dLVery High Triglyceride: greater than or equal to 5OO mg/dL Cholesterol 139 <200 mg/dL [facility] Comment:Desirable Cholestero l: less than 200 mg/dLBorderline High Cholesterol: 200-239 mg/dLHigh Cholesterol: greater than 239 mg/dL LDL Cholesterol Calculated 76 <100 mg/dL [facility] Comment:Desirable LDL: less than 100 mg/dLNear Optimal/Above Optimal LDL: 110- 129 mg/dLBorderline High LDL: 130-159 mg/dLHigh LDL: 160-189 mg/dLVery High LDL: greater than or equal to 190 mg/dL HDL Cholesterol 43 >40 mg/dL [facility] Comment:Desirable HDL: great er than 40 mg/dL Note: This HDL assay may give artificially low results in patients with liver disease. Blood Venous blood specimen / Unknown 05/16/2024 11:15 AM EDT 05/16/2024 12:53 PM EDT us Isaac Baptiste MD LAB BLOOD ORDERABLES Final Resul t Performing Organization Address [facility] Co de Phone Number [facility] [address] [place] [phone] * Fecal Globin by Immunochemistry (07/27/2023 12:00 AM EDT) Fecal Globin By Immunochemistry SEE NOTE [facility] Comment:FECAL GLOBIN BY IMMU NOCHEMISTRY Micro Number: [id number] Test Status: Final Specimen Source: Insure (tm) fobt test card Specimen Quality: Adequate Fecal Globin: Not DetectedTHIS TEST WAS PERFORMED AT:[id number] [place] [id number] GEORGE MD 07/27/2023 08/02/2023 9:1 8 AM EDT us Isaac Baptiste MD LAB BODY FLUIDS AND STOOLS ORDER SOFI Final Result Performing Organization Address [facility] Co de Phone Number [facility] [address] [place] [address] [phone] from Last 3 Months or Most Recently Relevant to Health Maintenance [facility] [place] [phone] Care Teams Decorator Mannequin Relationship Specialty Start Date End Date Name, MD Isaac [address] [place] [phone] PCP - General Family Medicine 10/20/15 Maura Nieto, PharmD [address] [place] [phone] Pharmacist Internal Medicine 12/24/24
--- OUTSIDE RECORDS SUMMARY | 2025-01-14 11:57 | XMS_ITS | Encounter Summary ---
Author Organization [employer] Address [address] [facility] [address] [place] [address] Care Team Providers Care Sill Worker Name Role Phone Name, Isaac ALEMAN Primary Care Provider [phone] Maura Nieto PharmD Unavailable [phone] Encounter Details Date Type Department Care Team ([facility] Contact Info) Description 06/01/2023 Orders Only [facility] [address] [place], [place] [phone] Iliana Fleming LPN Social History Tobacco Use Types Packs/Day Years [...] Encounters Date Type Department Care Team (Late Contact Info) Description 01/22/2025 11:30 AM EDT Medication Management [facility] [address] [place] [address] Maura Nieto, PharmD [address] [place] [address] documented as of this encounter Visit Diagnoses Not on filedocumented in this encounter Care Teams Sill Worker Relationship Specialty Start Date End Date Name, MD Isaac [address] [place] [address] PCP - General Family Medicine 10/20/15 Maura Nieto, Abhishek [address] [place] [address] [phone] Pharmacist Internal Medicine 12/24/24 documented as of this encounter
== END 2025-01-14 10:13 | disposition home or self-care (01) ==
LOC: HO.HHCL 10:12
PROVIDERS: Visit Provider Internal Medicine Geriatric Medicine
DX: I10 Essential (primary) hypertension (principal)
CPT/HCPCS: 36415; 80048

== ENCOUNTER 2025-03-05 14:17 | Outpatient (REF) | payer MEDICARE, MEDICAID, SELFPAY ==
--- NOTE | ~2025-03-05 | US_ITS ---
EXAMINATION: Noninvasive assessment of the bilateral lower extremities with ARTERIAL DUPLEX, ANKLE BRACHIAL INDICES (ABIs), and PULSE VOLUME RECORDINGS (PVRs). Noninvasive assessment of the abdominal aorta and the iliac arteries. CLINICAL INFORMATION: Peripheral vascular disease, unspecified. TECHNIQUE: Duplex Doppler techniques with waveform analysis and measurement of velocities in the bilateral common femoral, profunda femoris, superficial femoral, popliteal and tibial arteries were performed. Additionally, ankle pulse volume recordings, ankle pressure measurements and ankle brachial indices were obtained of the lower extremity arterial system bilaterally. The study was performed only at rest. Color Doppler interrogation of the abdominal aorta and the iliac arteries. COMPARISON: July 11, 2024 demonstrated occluded left superficial femoral artery. FINDINGS: DIRECT DUPLEX DOPPLER FINDINGS: RIGHT LEG: Common femoral artery: 143 cm/s, phasicity: Monophasic. Profunda femoris artery: 51 cm/s, phasicity: Monophasic. Superficial femoral artery (proximal): 92 cm/s, phasicity: Monophasic. Superficial femoral artery (mid): 122 cm/s, phasicity: Monophasic. Superficial femoral artery (distal): 53 cm/s, phasicity: Monophasic. Popliteal artery: 55 cm/s, phasicity: Monophasic. Posterior tibial artery: 37 cm/s, phasicity: Monophasic. Peroneal artery: No color Doppler. Anterior tibial artery: 38 cm/s, phasicity: Monophasic. Dorsalis pedis artery: 57 cm/s, phasicity:Monophasic. LEFT LEG: Common femoral artery: 155 cm/s, phasicity: Monophasic. Profunda femoris artery: 97 cm/s, phasicity: Monophasic. Superficial femoral artery (proximal): 79 cm/s, phasicity: Monophasic. Superficial femoral artery (mid): No color Doppler/occluded. Superficial femoral artery (distal): 263 cm/s, phasicity: Monophasic. Spectral broadening. Popliteal artery: 61 cm/s, phasicity: Monophasic. Posterior tibial artery: 43 cm/s, phasicity: Monophasic. Peroneal artery: 29 cm/s, phasicity: Monophasic. Anterior tibial artery: 46 cm/s, phasicity: Monophasic. Dorsalis pedis artery: 42 cm/s, phasicity: Monophasic. BRACHIAL PRESSURES: Right: 141 Left: 156 ANKLE PRESSURES: Right: PT 94, DP 97 Left: PT 87, DP 89 ANKLE-BRACHIAL INDEX: Right: 0.62 Left: 0.57 ANKLE PVR WAVEFORMS: Right: Abnormal Left: Abnormal. ABDOMINAL AORTA: Proximal segment: 132 cm/s and 2.1 cm in maximum diameter. Midsegment not identified. Distal segment: 200 cm/s and 1.9 cm in maximum diameter. RIGHT ILIAC ARTERY: Common iliac artery is not identified. External iliac artery: 191 cm/s. LEFT ILIAC ARTERY: Common iliac artery is not identified. External iliac artery: 348 cm/s. US/US abdominal aortic aneurysm IMPRESSION: Right leg: Severe inflow disease throughout the interrogated vessels. Left leg: Severe inflow disease throughout the interrogated vessels. Occluded left superficial femoral artery mid segment with collateral flow. Elevated distal velocity distal superficial femoral artery likely related to high degree stenosis. No abdominal aortic aneurysm. Concerning hemodynamically high degree stenosis, left external iliac artery. YVON Reference: - >1.4 = calcified vessels - 0.9 - 1.4 = normal - no significant arterial disease - 0.7 - 0.89 = mild peripheral arterial disease - 0.51 - 0.69 = moderate peripheral arterial disease - d 0.50 = severe peripheral arterial disease - < .30 = critical arterial disease Electronically signed by: Rudolph Thao MD 03/06/2025 10:45 AM EDT
== END 2025-03-05 14:18 | disposition home or self-care (01) ==
LOC: HO.US 14:17
PROVIDERS: PCP Internal Medicine Geriatric Medicine; Visit Provider Surgery Vascular Surgery
DX: I73.9 Peripheral vascular disease, unspecified (principal)
CPT/HCPCS: 76706; 93925

== ENCOUNTER → 2025-03-05 14:26 | Outpatient (BNV) | payer MEDICARE, MEDICAID, SELFPAY | PROVIDERS: PCP Internal Medicine Geriatric Medicine; Visit Provider Radiology Diagnostic Radiology | DX: I70.213 Atherosclerosis of native arteries of extremities with intermittent claudication, bilateral legs (principal); I70.212 Atherosclerosis of native arteries of extremities with intermittent claudication, left leg | CPT/HCPCS: 76706; 93925 ==

== ENCOUNTER 2025-03-19 10:59 | Outpatient (AMB) | payer MEDICARE, MEDICAID, SELFPAY ==
[2025-03-19 11:02] VITALS: BMI 30.9
--- NOTE | 2025-03-19 11:02 | MHC.OFFVIS ---
Vital Signs 03/19/25 11:02 Height 5 ft 8 in Weight 203 lb BMI 30.9 Intake Visit Reasons: 6 mo follow up Art 03/05/25 Intake Note: 6 mo follow up Arterial US 03/05/25. Pt states he is doing well, walking twice as much as the last time he was seen 6 months ago. Claim Review Medical Director Required: No Accompanied by: Self / Same As Patient Allergies atorvastatin [From LIPITOR] Allergy (Unknown, Verified 03/19/25 11:05) PER H&P HPI HPI 6 mo follow up Art 03/05/25: Details: Very pleasant 65-year-old gentleman presents for follow-up regarding claudication. He has a history of hypertension and diabetes. He quit smoking about 3 years ago drinking about 10 years ago. He is a retired associate automation engineer. At the current time he reports he is doing much better than his last visit. He can walk several blocks with no issues. He has been maintained on aspirin and statin. He now presents for routine noninvasive testing. [facility] Medical History ETOH abuse Diabetes mellitus type 2, insulin dependent Seizure disorder Nicotine dependence, cigarettes, uncomplicated Social History (Updated 03/19/25 @ 11:06 by TYLER Chua) Patient Tobacco Use Status: Former Tobacco user Review of Systems Const All systems reviewed & are unremarkable except as noted in HPI and below Reports no additional complaints ENT Reports Normal hearing present Card Denies chest pain, Denies chest pain at rest, Denies chest pain with activity and Denies pedal edema Resp Denies cough GI Denies abdominal pain Musc Denies abnormal gait, Denies muscle cramps and Denies radiating pain into limb Skin/Breast Denies skin ulcer and Denies wounds Neuro Reports Normal hearing present and Denies abnormal gait Psych Reports no additional complaints Physical Exam Vital Signs: BMI result Body Mass Index 30.9 Const General: cooperative, healthy appearing and comfortable Orientation/consciousness: oriented to person, oriented to place and oriented to time HEENT Head: Yes normal to inspection Neck Neck: Yes normal visual inspection Carotids: no bruits Chest Chest palpation & inspection: normal inspection of the chest Resp Effort & Inspection: normal respiratory effort and able to speak in complete sentences Auscultation: clear to auscultation bilaterally, no crackles, no rales, no rhonchi and no wheezes Cardio Other: Bilateral DP signals Rate: regular rate Rhythm: regular rhythm Heart sounds: S1 normal heart sound present and S2 normal heart sound present Bruits: no carotid bruits GI Inspection: Yes normal to inspection Skin Wounds: no wounds Hair: normal Neuro General: oriented to person, oriented to place and oriented to time Cranial nerves: Yes CN's II-XII intact bilaterally and Yes Normal hearing present Cognition (Neuro): normal cognition Motor exam (neuro): 5/5 motor strength present throughout Extrem Other: venous exam: No significant superficial varicosities or spider telangiectasias, minimal edema General: No clubbing, No cyanosis and No edema Psych Appearance: grossly normal Mental Status: mental status grossly normal Speech and movement: Normal speech and movement present Results Reviewed Results Reviewed: Noninvasive arterial testing dated 03/05/2025 demonstrates YVON on the right of 0.62 and on the left of 0.57. Written report and images were reviewed. It appears within similar limits of prior study. Assessment & Plan Assessment & Plan (1) PAD (peripheral artery disease): Code(s): I73.9 - Peripheral vascular disease, unspecified Category: Medical Plan: In short patient has stable claudication. I did review the pathophysiology of peripheral vascular disease with the patient. In addition we did discuss routine conservative measures including a healthy diet and the importance of exercise and ambulation. We did discuss risk factor modification. The patient will continue to to follow-up with surveillance follow-up in approximately 1 year. Thank you for allowing us to participate in this patient's care. If there are any questions or concerns please do not hesitate to contact us. Orders: Orders US arterial duplex LE BI 1 Year I73.9 - Peripheral vascular disease, unspecified Coding Level of Care Code Est Pt Level 4 (25551) Complex EM visit Add On G2211 Diagnoses PAD (peripheral artery disease) I73.9
--- OUTSIDE RECORDS SUMMARY | 2025-03-19 13:06 | XMS_ITS | Encounter Summary ---
Author Organization [employer] Address [address] [facility] 7t [place] [address] Care Team Providers Care Driver Utility Worker Name Role Phone Name, Isaac ALEMAN Primary Care Provider [phone] Maura Nieto PharmD Unavailable [phone] Encounter Details Date Type Department Care Team (Late Contact Info) Description 06/01/2023 Orders Only [facility] MED [facility] PEDS [address] [place], [place] [phone] Iliana Fleming LPN Social History Tobacco Use [...] Department Care Team (Late Contact Info) Description 03/26/2025 11:00 AM EDT Medication Management [facility] [address] [place] [address] [phone] Maura Nieto, PharmD [address] [place], [place] [phone] 05/17/2025 11:15 AM EDT Office Visit [facility] [address] [place] [address] [phone] Name, MD Isaac [address] [place], [place] [phone] 05/27/2025 2:00 PM EDT Office Visit [facility] [address] [place], [place] [phone] Jaimie Ocampo, OD [address] [place] [address] documented as of this encounter Visit Diagnoses Not on filedocumented in this encounter Care Teams Driver Utility Worker Relationship Specialty Start Date End Date Name, MD Isaac [address] [place], [place] [phone] PCP - General Family Medicine 10/20/15 Maura Nieto PharmD [address] [place] [address] [phone] Pharmacist Internal Medicine 12/24/24 documented as of this encounter
== END 2025-03-19 11:49 | disposition home or self-care (01) ==
LOC: HO.HVS 11:00
PROVIDERS: PCP Internal Medicine Geriatric Medicine; Visit Provider Surgery Vascular Surgery
DX: I73.9 Peripheral vascular disease, unspecified (principal)
CPT/HCPCS: 99214; G2211

== ENCOUNTER → 2025-03-19 10:59 | Outpatient (BNVA) | payer MEDICARE, MEDICAID, SELFPAY | PROVIDERS: PCP Internal Medicine Geriatric Medicine; Visit Provider Surgery Vascular Surgery | DX: I73.9 Peripheral vascular disease, unspecified (principal) | CPT/HCPCS: 99212 ==

== ENCOUNTER 2025-06-03 11:14 | Outpatient (REF) | payer MEDICARE, MEDICAID, SELFPAY ==
--- OUTSIDE RECORDS SUMMARY | 2025-06-03 12:38 | XMS_ITS | Encounter Summary ---
Author Organization [employer] Address [address] [facility] 7t [place] [address] Care Team Providers Care Central Office Worker Name Role Phone Name, Isaac ALEMAN Primary Care Provider [phone] Maura Nieto PharmD Unavailable [phone] Encounter Details Date Type Department Care Team (Late Contact Info) Description 06/01/2023 Orders Only [facility] MED & PEDS [address] [place], [place] [phone] Iliana Fleming LPN Social History Tobacco Use [...] Department Care Team (Late Contact Info) Description 06/14/2025 11:30 AM EDT Medication Management [facility] [address] [place] [address] [phone] Maura Nieto, PharmD [address] [place], [place] [phone] 08/07/2025 11:15 AM EDT Office Visit [facility] [address] [place] [address] [phone] Name, MD Isaac [address] [place], [place] [phone] 09/23/2025 2:00 PM EST Office Visit [facility] [address] [place], [place] [phone] Jaimie Ocampo, OD [address] [place] [address] documented as of this encounter Visit Diagnoses Not on filedocumented in this encounter Care Teams Central Office Worker Relationship Specialty Start Date End Date Name, MD Isaac [address] [place], [place] [phone] PCP - General Family Medicine 10/20/15 Maura Nieto PharmD [address] [place] [address] [phone] Pharmacist Internal Medicine 12/24/24 documented as of this encounter
[2025-06-03 13:59] LABS: Microalbum/Creatinine Ratio Ur 7.2 ug/mg cr (<30)
[2025-06-03 14:33] LABS: Anion Gap 12 (12-20); Blood Urea Nitrogen 16 mg/dL (9-16); Calcium 9.4 mg/dL (8.4-10.2); Carbon Dioxide 27 mmol/L (22-29); Chloride 97 mmol/L (96-108); Cholesterol 171 mg/dL (<200); Estimated Glomerular Filt Rate > 60; HDL Cholesterol 42 mg/dL (>40); Potassium 3.9 mmol/L (3.3-5.1); Sodium 132 mmol/L (135-145); Triglycerides 143 mg/dL (<150)
== END 2025-06-03 11:15 | disposition home or self-care (01) ==
LOC: HO.HHCL 11:14
PROVIDERS: PCP Internal Medicine Geriatric Medicine; Visit Provider Internal Medicine Geriatric Medicine
DX: I10 Essential (primary) hypertension (principal); E11.69 Type 2 diabetes mellitus with other specified complication; Z79.4 Long term (current) use of insulin
CPT/HCPCS: 36415; 80048; 80061; 82043; 82570

== ENCOUNTER 2025-07-03 12:57 | Outpatient (REF) | payer MEDICARE, MEDICAID, SELFPAY ==
--- NOTE | ~2025-07-03 | CT_ITS ---
CLINICAL HISTORY: F17.210 - Nicotine dependence, cigarettes, uncomplicated CT lung cancer screening (LDCT) Comparison: CT/LA/SR - CT LUNG SCREENING - 05/03/24 08:[address]/REG/LA/SR - CT LUNG SCREENING - 05/02/23 08:53 EDT Technique: Axial CT images of the chest using low-dose technique. Referring provider counseled the patient on shared decision-making for LDCT screening. Additional counseling was provided on smoking cessation. Effective radiation dose total: DLP 51.5 mGycm, CTDIvol 1.5 mGy. Findings: Stable solid right upper lobe pulmonary nodule from 2022 measuring 4 mm (series 4, image 53). Moderate coronary artery atherosclerotic vascular calcifications. Limited upper abdomen: Unremarkable Other: None IMPRESSION: No suspicious pulmonary nodules or masses. LungRADS 2 - Benign Appearance: Continue annual screening with low dose Chest CT in 12 months. ##L2# This document has been electronically signed by: Star Vásquez DO on 07/05/2025 10:33:48
--- OUTSIDE RECORDS SUMMARY | 2025-07-03 15:22 | XMS_ITS | Encounter Summary ---
Author Organization [employer] Address [address] [facility] 7[address] [place] [address] Care Team Providers Care Cook Morning Name Role Phone Name, Isaac ALEMAN Primary Care Provider [phone] Maura Nieto PharmD Unavailable [phone] Reason for Visit * Reason Comments Med Refill Encounter Details Date Type Department Care Team ([facility] st Contact Info) Description 08/30/2023 Refill [facility] [address] [place], [place] [phone] Name, MD Isaac [address] [place] [address] Type 2 diabetes mellitus with other specified complication, with long-term current use of insulin ([facility]) Social History Tobacco Use Types [...] Care Team (Late st Contact Info) Description 07/08/2025 11:30 AM EDT Medication Management [facility] [address] [place] [phone] Maura Nieto PharmD [address] [place] [phone] 08/07/2025 11:00 AM EDT Office Visit [facility] [address] [place] [phone] Name, MD Isaac [address] [place] [address] 09/23/2025 2:00 PM EST Office Visit [facility] [address] [place] [phone] Terrence, Jaimie, OD [address] [place] [address] documented as of this encounter Visit Diagnoses Diagnosis Type 2 diabetes mellitus with other specified complication, with long-term current use of insulin ([facility]) documented in this encounter Care Teams Cook Morning Relationship Specialty Start Date End Date Isaac Baptiste MD [address] [place] [phone] PCP - General Family Medicine 10/20/15 Maura Nieto PharmD [address] [place] [phone] Pharmacist Internal Medicine 12/24/24 documented as of this encounter
--- OUTSIDE RECORDS SUMMARY | 2025-07-03 15:22 | XMS_ITS | Encounter Summary ---
Author Organization [employer] Address [address] [facility] 7t [place] [address] Care Team Providers Care Copy Clerk Name Role Phone Name, Isaac ALEMAN Primary Care Provider [phone] Maura Nieto PharmD Unavailable [phone] Encounter Details Date Type Department Care Team (Late Contact Info) Description 02/18/2023 Abstract [facility] [address] [place] [address] [phone] Name, MD Isaac [address] [place] [phone] Social History Tobacco Use Types Packs/Day Years [...] Department Care Team (Late Contact Info) Description 07/08/2025 11:30 AM EDT Medication Management [facility] [address] [place] [phone] Maura Nieto, PharmD [address] [place] [phone] 08/07/2025 11:00 AM EDT Office Visit [facility] [address] [place] [address] [phone] Name, MD Isaac [address] [place] [address] 09/23/2025 2:00 PM EST Office Visit [facility] OPT[facility] [address] [place] [address] Terrence, Jaimie, OD [address] [place] [address] documented as of this encounter Procedures Procedure [...] on filedocumented in this encounter Care Teams Copy Clerk Relationship Specialty Start Date End Date Name, MD Isaac [address] [place], [place] [phone] PCP - General Family Medicine 10/20/15 Maura Nieto PharmD [address] [place] [address] [phone] Pharmacist Internal Medicine 12/24/24 documented as of this encounter
--- OUTSIDE RECORDS SUMMARY | 2025-07-03 15:22 | XMS_ITS | Encounter Summary ---
Author Organization [employer] Address [address] [facility] 7t [place] [address] Care Team Providers Care Rail Operations Controller Name Role Phone Name, Isaac ALEMAN Primary Care Provider [phone] Maura Nieto PharmD Unavailable [phone] Encounter Details Date Type Department Care Team (Late Contact Info) Description 06/01/2023 Orders Only [facility] CH[facility] MED & PEDS [address] [place], [place] [phone] Iliana Fleming LPN Social History Tobacco Use [...] Description 07/08/2025 11:30 AM EDT Medication Management [facility] MEDICINE [address] [place] [address] [phone] Maura Nieto, PharmD [address] [place], [place] [phone] 08/07/2025 11:00 AM EDT Office Visit [facility] MED[facility]INE [address] [place] [address] [phone] Name, MD Isaac [address] [place], [place] [phone] 09/23/2025 2:00 PM EST Office Visit [facility] [address] [place], [place] [phone] Jaimie Ocampo, OD [address] [place] [address] documented as of this encounter Visit Diagnoses Not on filedocumented in this encounter Care Teams Rail Operations Controller Relationship Specialty Start Date End Date Name, MD Isaac [address] [place], [place] [phone] PCP - General Family Medicine 10/20/15 Maura Nieto PharmD [address] [place] [address] [phone] Pharmacist Internal Medicine 12/24/24 documented as of this encounter
--- OUTSIDE RECORDS SUMMARY | 2025-07-03 15:23 | XMS_ITS | Clinical Summary ---
Author Organization [employer] Address [address] [facility] [address] [place] [address] Care Team Providers Care Legal Practice Manager Name Role Phone Name, Isaac ALEMAN Primary Care Provider [phone] Maura Nieto PharmD Unavailable [phone] Allergies Active Allergy Reactions Criticality Noted Date Comments Atorvastatin 12/04/2015 Other reaction(s): Unknown Medications Continuous Glucose Water [employer]ic (FreeStyle Rick 2 [place]) deviceIndicatio ns:Type 2 diabetes mellitus with other specified complication, with long-term current use of insulin (CMS/HCC) USE PRESCRIBED 1 each 024 Active omeprazole (PriLOSEC) [address] capsule Take 1 capsule (20 mg) by mouth before breakfast. Do not crush or chew. 30 capsule 024 2024 Active insulin syringe-needle U-100 (TRUEplus Insulin Syringe) 31G X 5/16 0.5 mL misc USE DIRECTED 5 TIMES A DAY 150 each 024 Active glucose blood (FreeStyle Precision Kimo Test) test stripIndication s:Type 2 diabetes mellitus with other specified complication, with long-term current use of insulin (CMS/HCC) 1 each by Other route 3 times daily. 100 each 025 Active Continuous Glucose Sensor (FreeStyle Rick 2 Plus Sensor) miscIndications :Type 2 diabetes mellitus with other specified complication, with long-term current use of insulin (CMS/HCC) 1 each every 8 (eight) hours. Apply 1 sensor every 15 days as directed for CGM. Continue to scan Q8H, at minimum, to capture 24 hr BG data. 2 each 025 Active amLODIPine (Norvasc) 10 MG tabletIndicatio ns:Essential hypertension TAKE 1 TABLET BY MOUTH DAILY 90 tablet 3 01/23/20 25 2:34 PM EDT Active metFORMIN XR (Glucophage-XR) 500 MG 24 hr tabletIndicatio ns:Type 2 diabetes mellitus with other specified complication, with long-term current use of insulin (CMS/HCC) Take 2 tablets (1,000 mg) by mouth with breakfast and with evening meal. Do not crush, chew, or split. 360 tablet 3 025 2025 Active Blood Pressure kit Use daily to check BP as directed 1 kit Active HumaLOG 100 UNIT/ML solutionIndicat ions:Type 2 diabetes mellitus with other specified complication, with long-term current use of insulin (CMS/HCC) Inject 0.08-0.14 mL (8-14 Units) under the skin See administration instructions. 8-14 units QID prior to meal and snacks 20 mL 11 05/15/20 25 9:28 AM EDT 025 Active losartan-hydroC HLOROthiazide (Hyzaar) 100-25 MG tablet Take 1 tablet by mouth Once per day. 30 tablet 2 Active meloxicam (Mobic) 7.5 MG tablet TAKE 1 TABLET BY MOUTH EVERY DAY 30 tablet 05/04/20 25 10:02 AM EDT Active aspirin 81 MG chewable tablet Chew 1 tablet (81 mg) Once per day. 90 tablet 3 025 2025 Active rosuvastatin (Crestor) 10 MG tabletIndicatio ns:Type 2 diabetes mellitus with other specified complication, with long-term current use of insulin (CMS/HCC) Take 1 tablet (10 mg) by mouth Once per day. 90 tablet 1 06/14/20 4:47 PM EDT Active insulin glargine (Lantus) 100 UNIT/ML injection Inject 42 Units under the skin in the morning. Instructed patient if FBGs continue >140 mg/dL w/o hypoBG (<70 mg/dL) to self titrate +2 units every 7 days to max of 48 units/day. 025 Active Insulin Disposable Pump (Omnipod 5 Libre2 Plus G6 Pods) miscIndications :Type 2 diabetes mellitus with other specified complication, with long-term current use of insulin (CMS/HCC) 1 Device every 3 (three) days. Wear daily for insulin administration. Change pod every 3 days as directed. 10 each Active Insulin Disposable Pump (Omnipod 5 Libre2 G6 Intro G5) kitIndications: Type 2 diabetes mellitus with other specified complication, with long-term current use of insulin (CMS/HCC) 1 Device Once per day. Use daily as directed for insulin administration 1 kit Active pravastatin (Pravachol) 20 MG tabletIndicatio ns:Type 2 diabetes mellitus with other specified complication, with long-term current use of insulin (CMS/HCC) TAKE 1 TABLET BY MOUTH DAILY ON TUESDAY, TUESDAY, AND TUESDAY 36 tablet 3 2024 Discontinued(A lternate therapy) insulin glargine (Lantus) 100 UNIT/ML injection Inject 40 Units under the skin in the morning. 2024 Discontinued(R eorder (will not trigger notification to Pharmacy)) Tirzepatide (Mounjaro) 5 MG/0.5ML solution auto-injectorIn dications:Type 2 diabetes mellitus with other specified complication, with long-term current use of insulin (CMS/HCC) Inject 5 mg under the skin 1 (one) time per week. 2 mL 11 2024 Discontinued(T herapy completed) Active Problems Problem Noted Date Diagnosed Date Hiatal hernia 08/15/2024 Gallstones 08/15/2024 Depressive disorder 11/23/2022 Anxiety 11/23/2022 Essential hypertension 06/24/2016 Diabetic retinopathy associa clair with type 2 diabetes mellitus 06/24/2016 Tobacco dependence syndrome 12/04/2015 Type 2 diabetes mellitus with other specified co mplication 12/04/2015 Encounters Date Type Department Care Team Description 06/14/2025 Travel 06/03/2025 Orders Only [facility] [address] [place] [phone] Name, MD Isaac 05/17/2025 11:15 AM EDT Office Visit [facility] [address] [place] [address] Name, MD Isaac Type 2 diabetes mellitus with other specified complication, with long-term current use of insulin ([facility]) (Primary Dx); Hypoglycemia; Essential hypertension 05/17/2025 Travel 05/16/2025 Telephone [facility] [address] [place] [address] Antonio Wayne [place] CHARTPREP 05/03/2025 Refill [facility] [address] [place] [address] Name, MD Isaac 05/03/2025 Travel from Last 3 Months Immunizations Immunization Administration Dates Next Due Influenza injectable quadriv alent IIV4 with preservative 07/04/2018,07/26/2017,06/24/2016 Influenza injectable quadriv alent preservative free 07/01/2023,07/16/2022,07/24/2021,07/01,07/09/2019 Influenza, IIV3, injectable 08/25/2015,1 ,07/12/2013,06/16,07/15/2011,07/16/2010,06/23/2009 ,08/19/2008,07/27/2007,09/24/2006 Influenza, seasonal, injecta ble, preservative free 06/20/2024 Pfizer Covid-19 Vaccine 12+ 07/25/2024, 3 Pfizer Covid-19 Vaccine 12+ Bivalent 07/16/2022 Pneumococcal [...] Answer Date Recorded Patient Health Questionnaire-9 Score 2 05/17/2025 Patient Health Questionnaire-9 Score 2 05/17/2025 Last PHQ-9: Questionnaire Data Not on file 0 05/17/2025 Housing Stability Answer Date Recorded What is [...] Answer Date Recorded Patient Health Questionnaire-2 Score 1 05/17/2025 Internet Access Answer Date Recorded Internet Access [...] Sign Reading Time Taken Comments Blood Pressure 110/68 06/14/2025 11:31 AM EDT Pulse 84 05/17/2025 11:28 AM EDT Temperature 35.6 C (96 F) 05/17/2025 11:28 AM EDT Respiratory Rate 20 05/17/2025 11:28 AM EDT Oxygen Saturation 96% 05/17/2025 11:28 AM EDT Inhaled Oxygen Concentration - - Weight 95.1 kg (209 lb 9.6 oz) 06/14/2025 11:31 AM EDT Height 172.7 cm (5' 8 ) 05/17/2025 11:28 AM EDT Body Mass Index 31.87 05/17/2025 11:28 AM EDT Plan of Treatment Upcoming Encounters Date Type Department Care Team (Late st Contact Info) Description 07/08/2025 11:30 AM EDT Medication Management [facility] [address] [place] [address] Maura Nieto, PharmD [address] [place] [address] 08/07/2025 11:00 AM EDT Office Visit [facility] [address] [place] [address] Name, MD Isaac [address] [place] [address] 09/23/2025 2:00 PM EST Office Visit [facility] [address] [place] [address] Terrence, Jaimie, OD [address] [place] [address] Health Maintenance Due Date Last Done Comments CT Colonography 1960 Colonoscopy 1960 Sigmoidoscopy 1960 Hepatitis C Screening 01/17/1978 Zoster Vaccines (1 of 2) 01/17/2010 RSV Patients and Patients Aged 60 years or older (1 - Risk 60-74 years 1-dose series) 2020 FIT 07/27/2024 07/27/2023, 02/09/2022 Eye Exam 05/07/2025 05/07/2024, /06/2024, 05/07/2024, Additional history exists COVID-19 Vaccine ( season) 2025 07/25/2024, 09/21/2023, 07/16/2022, Additional history exists Influenza Vaccine (#1) 2025 , 07/01/2023, 07/16/2022, Additional history exists Alcohol/Substance Use Screening 08/15/2025 08/15/2024 Diabetes: Foot Exam 08/15/2025 08/15/2024, 08/15/2024, 08/15/2024, Additional history exists SDOH Screening 08/15/2025 08/15/2024 FOBT 08/27/2025 08/27/2024, 07/27/2023 Diabetes: Hemoglobin A1C 09/13/2025 025, 03/26/2025, 12/24/2024, Additional history exists Depression Screening 05/17/2026 05/17/2025, 05/17/20 Tobacco Screening 05/17/2026 05/17/2025 Diabetes: Urine Protein Screening 06/03/2026 06/03/2025, 05/16/2024, 06/27/2023, Additional history exists Lipid Panel 06/03/2026 06/03/2025, 08/0 04/2024, 06/27/2023, Additional history exists Colorectal Cancer Screening 08/27/2027 FIT DNA/Cologuard 08/27/2027 08/27/2024 DTaP/Tdap/Td Vaccines (4 - Td or Tdap) 12/11/2031 12/10/2021, 01/22/2011, 10/24/2010 Pneumococcal Vaccine: 50+ Years Completed 02/17/2024, 03/16/2006 HIB Vaccines Aged Out No longer eligi [...] patient's age to complete this topic Meningococcal B Vaccine Aged Out No l onger eligible based on patient's age to complete [...] Name Priority Date/Time Associated Diagnosis Comments POCT GLYCATED HEMOGLOBIN, TOTAL Routine 06/14/2025 3:11 PM EDT Type 2 diabetes mellitus with other specified complication, with long-term current use of insulin ([facility]) BASIC METABOLIC PANEL Routine 06/03/2025 11:18 AM EDT ALBUMIN, RANDOM URINE W/CREATININE Routine 06/03/2025 11:18 AM EDT Type 2 diabetes mellitus with other specified complication, with long-term current use of insulin ([facility]/HCC) LIPID PANEL, STANDARD Routine 06/03/2025 11:18 AM EDT Type 2 diabetes mellitus with other specified complication, with long-term current use of insulin ([facility]) POCT GLUCOSE Routine 05/17/2025 11:50 AM EDT Type 2 diabetes mellitus with other specified complication, with long-term current use of insulin ([facility]) LAB COLOGUARD COLON CANCER SCREEN Routine 08/27/2024 6:30 PM EST Screening for colon cancer FECAL GLOBIN BY IMMUNOCHEMISTRY Routine 07/27/2023 12:00 AM EDT from Last 3 Months or Most Recently Relevant to Health Maintenance Results * (ABNORMAL) POCT HGB A1C (06/14/2025 3:11 PM EDT) Hemoglobin A1C 7.5(A) 4.0 - 5.7 % Blood 06/14/2025 3:11 PM EDT us Isaac Name POINT OF CARE TEST ENTER/EDIT OR DERABLES Final Result * Albumin, Random Urine W/Creatinine (06/03/2025 11:18 AM EDT) Creatinine, Urine 109.84 mg/dL [facility] Microalbumin Urine 8.0 mg/L [facility] Microalbum Creatinine Ratio Ur 7.2 <30 ug/mg cr [facility] Comment:Albumin/Creatinine R atio Reference Ranges: Normal: < 30 ug/mg creatinine Microalbuminuria: 30 - 300 ug/mg creatinineClinical Albuminuria: > 300 ug/mg creatinine Urine (Urine, Random) 06/03/2025 11:18 AM EDT 06/03/2025 12:58 PM EDT us Isaac Baptiste MD LAB URINE ORDERABLES Final Resul t Performing Organization Address [facility] de Phone Number [facility] [address] [place] [phone] * (ABNORMAL) Lipid Panel, Standard (06/03/2025 11:18 AM EDT) Triglycerides 143 <150 mg/dL [facility] Comment:Desirable Triglyceri de: less than 150 mg/dLBorderline High Triglyceride 150-199 mg/dLHigh Triglyceride: 200-499 mg/dLVery High Triglyceride: greater than or equal to 5OO mg/dL Cholesterol 171 <200 mg/dL [facility] Comment:Desirable Cholestero l: less than 200 mg/dLBorderline High Cholesterol: 200-239 mg/dLHigh Cholesterol: greater than 239 mg/dL LDL Cholesterol Calculated 101(H) <100 mg/dL [facility] Comment:Desirable LDL: less than 100 mg/dLNear Optimal/Above Optimal LDL: 110- 129 mg/dLBorderline High LDL: 130-159 mg/dLHigh LDL: 160-189 mg/dLVery High LDL: greater than or equal to 190 mg/dL HDL Cholesterol 42 >40 mg/dL [facility] Comment:Desirable HDL: great er than 40 mg/dL Note: This HDL assay may give artificially low results in patients with liver disease. Blood Venous blood specimen / Unknown 06/03/2025 11:18 AM EDT 06/03/2025 1:28 PM EDT us Isaac Baptiste MD LAB BLOOD ORDERABLES Final Resul t Performing Organization Address [facility] Co de Phone Number [facility] [address] [place] [phone] * (ABNORMAL) Basic Metabolic Panel (06/03/2025 11:18 AM EDT) Sodium 132(L) 135 - 145 mmol/L [facility] Potassium 3.9 3.3 - 5.1 mmol/L [facility] Chloride 97 96 - 108 mmol/L [facility] Carbon Dioxide 27 22 - 29 mmol/L [facility] Anion Gap 12 12 - 20 [facility] Urea Nitrogen (BUN) 16 9 - 16 mg/dL [facility] Creatinine, Serum 0.90 0.5 - 1.4 mg/dL [facility] Estimated Glomerular Filt Rate >60 [facility] Comment:Chronic Kidney Disea se: Estimated GFR < 60 mL/min/1.03a8Yhxnry Kidney Disease: Estimated GFR < 15 mL/min/1.73m2 Glucose 158(H) 60 - 115 mg/dL [facility] Calcium 9.4 8.4 - 10.2 mg/dL [facility] 06/03/2025 11:1 8 AM EDT 06/03/2025 1:28 PM EDT us Isaac Baptiste MD LAB BLOOD ORDERABLES Final Resul t [facility] [address] [place] [phone] * POCT Glucose (05/17/2025 11:50 AM EDT) Pathologist [facility] Glucose Blood, POC 153 60 - 200 mg/dL [employer] Media Lot # [id number] Lot# Expiration Date Blood Capillary blood specimen / Unknown 05/17/2025 11:50 AM EDT us Isaac Baptiste MD POINT OF CARE TEST ENTER/EDIT OR DERABLES Final Result * Cologuard?? colon cancer screening (08/27/2024 6:30 PM EST) Cologuard Result Negative Negative 09/06/20 24 2:03 AM EST [email or web address] (CLIA #:[id number]) Comment: NEGATIVE TEST RESULT. A negative Cologuard result indicates a low likelihood that a colorectal cancer (CRC) or advanced adenoma (adenomatous polyps with more advanced pre-malignant features) is present. The chance that a person with a negative Cologuard test has a colorectal cancer is less than 1 in 1500 (negative predictive value >99.9%) or has an advanced adenoma is less than 5.3% (negative predictive value 94.7%). These data are based on a prospective cross-sectional study of 10,000 individuals at average risk for colorectal cancer who were screened with both Cologuard and colonoscopy. (Claire Amezcua et al, N Engl J Med 2014;370(14):7101-6022) The normal value (reference range) for this assay is negative. COLOGUARD RE-SCREENING RECOMMENDATION: Periodic colorectal cancer screening is an important part of preventive healthcare for asymptomatic individuals at average risk for colorectal cancer. Following a negative Cologuard result, the [place] [employer] Society and U.S. Multi-Society Task Force screening guidelines recommend a Cologuard re-screening interval of 3 years. References: [place] [employer] Guideline for Colorectal Cancer Screening: https://www.cancer.org/cancer/zzble-gpyzlr-kifayh/xkhonllwa-jdkvhawye-kmuhfgc/ac s-rec ommendations.html.; Roderick PAL, Amado AGUILLON, Sharron VillagranK, Colorectal Cancer Screening: Recommendations for Physicians and Patients from the U.S. Multi-Society Task Force on Colorectal Cancer Screening , Am J Gastroenterology 2017; 112:7530-4723. TEST DESCRIPTION: Composite algorithmic analysis of stool DNA-biomarkers with hemoglobin immunoassay. Quantitative values of individual biomarkers are not [...] screened with both Cologuard and colonoscopy. (Claire Amezcua et al, N Engl J Med 2014;370(14):2086-2902.) Cologuard may produce a false negative or false positive result (no colorectal cancer or precancerous polyp present at colonoscopy follow up). A negative Cologuard test result does not guarantee the absence of CRC or advanced adenoma (pre-cancer). The current Cologuard screening interval is every 3 years. ([place] [employer] Society and U.S. Multi-Society Task Force). Cologuard performance data in a 10,000 patient pivotal study using colonoscopy as the reference method can be accessed at the following location: www.Fortisphere/results. Additional description of the Cologuard test process, warnings and precautions can be found at www.[employer]oon[employer]tr[employer].com. Stool specimen (specimen) 08/27/2024 6:30 PM EST 08/29/2024 11:32 AM EST Isaac Baptiste MD LAB MOLECULAR DIAGNOSTICS ORDERA BLES Final Result [email or web address] (CLIA #:[id number]) [place] [address], * Fecal Globin by Immunochemistry (07/27/2023 12:00 AM EDT) Fecal Globin By Immunochemistry SEE NOTE [facility] Comment:FECAL GLOBIN BY IMMU NOCHEMISTRY Micro Number: [id number] Test Status: Final Specimen Source: Insure (tm) fobt test card Specimen Quality: Adequate Fecal Globin: Not DetectedTHIS TEST WAS PERFORMED AT:[employer] [place] [id number] GEORGE MD 07/27/2023 08/02/2023 9:1 8 AM EDT us Isaac Baptiste MD LAB BODY FLUIDS AND STOOLS ORDER SOFI Final Result [facility] [address] [place] [phone] [phone] from Last 3 Months or Most Recently Relevant to Health Maintenance Insurance MEDICARE [facility] STANDARD N FULL Care Teams Legal Practice Manager Relationship Specialty Start Date End Date Name, MD Isaac [address] [place] [address] PCP - General Family Medicine 10/20/15 Maura Nieto PharmD [address] [place] [address] Pharmacist Internal Medicine 12/24/24
--- OUTSIDE RECORDS SUMMARY | 2025-07-03 15:23 | XMS_ITS | Encounter Summary ---
Author Organization [email or web address] Address [address] [facility] [address] [place] [address] Care Team Providers Care Mine Inspector Federal Name Role Phone Name, Isaac ALEMAN Primary Care Provider [phone] Maura Nieto PharmD Unavailable [phone] Reason for Visit * Reason Comments Med Refill Encounter Details Date Type Department Care Team ([facility] st Contact Info) Description 12/15/2024 Refill [facility] [address] [place], [place] [phone] Name, MD Isaac [address] [place] [address] Type 2 diabetes mellitus with other specified complication, with long-term current use of insulin ([facility]) Social History Tobacco Use Types [...] the past 12 months, has t he [employer], gas, oil or water company threatened to [...] 11:30 AM EDT Medication Management [facility] [address] [place] [phone] Maura Nieto, PharmD [address] [place] [address] 08/07/2025 11:00 AM EDT Office Visit [facility] [address] [place] [address] Name, MD Isaac [address] [place] [address] 09/23/2025 2:00 PM EST Office Visit [facility] [address] [place] [address] Jaimie Ocampo, LUBNA [address] [place] [address] documented as of this encounter Visit Diagnoses Diagnosis Type 2 diabetes mellitus with other specified complication, with long-term current use of insulin (CMS/HCC) documented in this encounter Additional Health Concerns Assessment Noted Time PHQ-9 Depression Total Score: 5 05/30/20 24 10:46 AM EDT documented as of this encounter Care Teams Mine Inspector Federal Relationship Specialty Start Date End Date Name, MD Isaac [address] [place] [address] PCP - General Family Medicine 10/20/15 Maura Nieto, Abhishek [address] [place] [address] Pharmacist Internal Medicine 12/24/24 documented as of this encounter
== END 2025-07-03 12:58 | disposition home or self-care (01) ==
LOC: HO.CT 12:57
PROVIDERS: PCP Internal Medicine Geriatric Medicine; Visit Provider Physician Assistant Medical
DX: Z12.2 Encounter for screening for malignant neoplasm of respiratory organs (principal); F17.210 Nicotine dependence, cigarettes, uncomplicated
CPT/HCPCS: 71271

== ENCOUNTER → 2025-07-03 12:59 | Outpatient (BNV) | payer MEDICARE, MEDICAID, SELFPAY | PROVIDERS: PCP Internal Medicine Geriatric Medicine; Visit Provider Family Medicine | DX: F17.210 Nicotine dependence, cigarettes, uncomplicated (principal) | CPT/HCPCS: 71271 ==